=== PATIENT | male | born 1970 | race Hispanic/Latino ===

== ENCOUNTER → 2017-11-14 | Outpatient (CLI) | payer BC | END | disposition home or self-care (01) | LOC: RAH 16:44 | PROVIDERS: ATTEND Family Medicine | DX: M25.531 Pain in right wrist (principal) | CPT/HCPCS: 73110 ==

== ENCOUNTER 2025-02-19 06:55 | Day surgery (SDC) | payer BC ==
[2025-02-18 09:52] VITALS: BP 151/79; PULSE 81; RESP 19; TEMP 98.1
[2025-02-18 09:57] LABS: IMMATURE GRANULOCYTE ABSOLUTE 0.03 K/uL (0-1); NUCLEATED RED BLOOD CELLS 0.0 % (0.0-0.19); PLATELET COUNT (AUTO) 190 K/uL (130-400); RED BLOOD CELL COUNT(AUTO) 4.77 MIL/uL (4.50-6.20); RED CELL DISTRIBUTION WIDTH 14.0 % (11.0-15.5); WHITE BLOOD COUNT (AUTO) 5.5 K/uL (4.8-10.8)
[2025-02-18 10:07] LABS: INR 1.06 (0.85-1.15)
[2025-02-18 10:12] LABS: CREATININE 0.6 mg/dL (0.5-1.3); GLOMERULAR FILTR. RATE CALC 115.0 mL/min (>90); GLUCOSE,RANDOM 132.0 mg/dL (70-105); SODIUM SERUM 142.0 mmol/L (136-145); UREA NITROGEN, BLOOD 12.0 mg/dL (7-18)
[2025-02-18 10:15] LABS: APPEARANCE,URINE CLEAR (CLEAR); GLUCOSE, URINE (UA) NEGATIVE (NEGATIVE); LEUKOCYTE ESTERASE ,URINE NEGATIVE Leu/uL (NEGATIVE); NITRATE,URINE NEGATIVE (NEGATIVE); OCCULT BLOOD,URINE NEGATIVE (NEGATIVE)
[2025-02-18 10:22] LABS: ADD UA MICROSCOPIC NO
--- NOTE | 2025-02-18 12:24 | EKG ---
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
--- NOTE | 2025-02-18 16:14 | HMCIMG ---
EXAM: CR Chest, 1 View. CLINICAL HISTORY: PREOP COMPARISON: None provided. FINDINGS: LUNGS: There is no mass, infiltrate, or acute pulmonary abnormality. PLEURAL SPACES: No evidence of pleural effusion or pneumothorax. MEDIASTINUM: Cardiac size and mediastinal contours within normal limits. BONES: No acute osseous abnormality. IMPRESSION: No acute cardiopulmonary pathology is evident. /[place]
[~2025-02-19] VITALS: Ht 175.3 cm; Wt 1599.4 kg
[2025-02-19] VITALS (12 sets, daily range): BP systolic 115–135; BP diastolic 64–78; PULSE 68–84; RESP 13–24; TEMP 97.1–97.6
[~2025-02-19 06:55] MED LIST: ASPI-1443 PO; DAPA10TA PO; ERGO500093 PO; ICOS1CAP PO; LISI1TAB53 PO; METF-527 PO; ROSU10TA72 PO
[2025-02-19] MEDS: 0.9%NACL 1000ML 1,000 ML IV SCH (07:28)
[2025-02-19] MEDS ORDERED: CLOM50TA PO (07:33)
[2025-02-19] MEDS ORDERED: GLIM4TAB36 PO (07:33)
[2025-02-19] MEDS ORDERED: IODIXANOL 320 MG/ML 100 ML VIAL ONE (08:34)
[2025-02-19] MEDS ORDERED: LIDOCAINE HCL 400MG/20ML VIAL ONE (08:34)
[2025-02-19] MEDS ORDERED: NITROGLYCERIN 50MG VIAL ONE (08:34)
[2025-02-19] MEDS ORDERED: HEParin-NS 1,000 UNIT/500 ML 1,000 ML IV ONE (08:34)
[2025-02-19] MEDS ORDERED: SODIUM BICARB 50MEQ 50ML VIAL 50 ML ONE (08:41)
[2025-02-19] MEDS ORDERED: MIDAZOLAM HCL 1 MG/ML 2ML VIAL ONE (08:55)
[2025-02-19] MEDS ORDERED: ASPIRIN 325MG EC TAB PO ONE (10:28)
--- NOTE | 2025-02-19 10:45 | PRN ---
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 TECHNIQUE: Patient was brought to the lab in a fasting state after informed consent and sedated with 1 mg Versed and 50 mcg fentanyl additional Versed and fentanyl were administered as needed during the procedure; refer to computerized notes for details of conscious sedation and monitoring. Under local anesthesia with 1% lidocaine using ultrasound guidance with micropuncture technique the right jugular vein was accessed and a nine American sheath was inserted. A glide catheter was advanced with the Glidewire to the left common femoral vein and a venogram was obtained with a 8 mL injection. An exchange was made for an intravascular ultrasound catheter and I personally performed an intravascular ultrasound procedure, selected the segments for measurement, measured the segments and interpreted the results. We then administered 5000 units aqueous heparin and 600 mg clopidogrel and 325 mg aspirin and we deployed a Medtronic Abre venous self expanding stent system 18 x 120 mm diameter and length, spanning the proximal common femoral and the entire external iliac on the left side. Results were inspected by intravascular ultrasound and we repositioned in the right deep femoral vein, and performed intravascular ultrasound from the right common femoral vein to the IVC. I personally performed the procedure, selected the segments for measurement, performed the measurements and interpreted the results. We exchanged the intravascular ultrasound for a glide catheter and obtained a venogram. We then deployed a Medtronic Abre venous self expanding stent system 18 mm diameter x 150 mm in length, from the proximal common femoral to the distal common iliac. We then post dilated the distal external iliac with a 16 mm balloon inflated to five atmospheres. We then evaluated the results by intravascular ultrasound and removed the equipment, sitting the patient up and obtaining venous hemostasis by direct digital pressure. No complications occurred. The patient received less than 20 mL contrast and was transferred to the holding area in stable condition after successful procedure. Results: Venography: Left external iliac vein appeared to be compressed by about 50-60% angiographically. Right external iliac and distal common iliac appeared to be compressed by at least 60% angiographically. Intravascular Ultrasound: Inferior vena cava reference area 205 mm, diameter 16.5 mm. Left common iliac vein reference area 298 mm, diameter 18 mm. Left common iliac vein compression area 173 mm, diameter 16 mm, 42% compression. (This measurement was at the bifurcation of the vein from the IVC). Left external iliac vein reference area 188 mm, diameter 16 mm. Left external iliac vein compression area 82 mm, diameter 12 mm, 56% co mpression. Left external iliac vein post stent area 222 mm, diameter 17.5 mm. (This demonstrates that the entire external iliac vein including the reference area was compressed.) Left common femoral vein reference area 154 mm, diameter 14 mm. Left common femoral vein compression area 75 mm, diameter 10 mm, 51% compression. Left common femoral vein post stent area 207 mm, diameter 16 mm. (This demonstrates that the common femoral vein reference area was also stenotic, also compressed.) Right common iliac vein reference area 228 mm, diameter 18 mm. Right external iliac vein reference area 169 mm, diameter 16 mm. Right external iliac vein compression area 68 mm, diameter 10 mm, 59% compression. Right external iliac vein post stent area 182 mm, diameter 15.5 mm. (This measurement was obtained at the area that had been dilated, which was still a bit smaller than the rest of the stented vein, and this measurement again indicates that the entire right external iliac vein was compressed.) Right common femoral vein reference area 182 mm, diameter 16 mm. Right common femoral vein compression area 71 mm, diameter 10 mm, 61% compression. Right common femoral vein post stent area 209 mm, diameter 16 mm. 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 May-Thurner syndrome was successfully treated by venous stenting. Left common iliac vein was not stented because the apparent narrowing was at the origin of the vein, still had a very sizable cross-sectional vein area and diameter at the compressed site, and was thought probably not to be hemodynamically significant. Comment: We also measured right atrial pressure and it was elevated at 10 mm Hg. RENATE HANKS MD Feb 19, 2025 10:45
--- NOTE | 2025-02-19 12:50 | NUR ---
AMBULATORY/URINARY: ASSISTED TO STANDING POSITION WITHOUT COMPLAINING OF DIZZINESS. AMBULATED T O BATHROOM SLOW STEADY GAIT WITH ASSISTANCE. PT VOIDED QS URINE IN TOILET. ASSISTED BACK TO BED.
== END 2025-02-19 13:50 | disposition home or self-care (01) ==
LOC: DAH 06:55
PROVIDERS: ATTEND Internal Medicine Cardiovascular Disease
DX: I87.2 Venous insufficiency (chronic) (peripheral) (principal); I87.1 Compression of vein; I45.10 Unspecified right bundle-branch block; E11.9 Type 2 diabetes mellitus without complications; I10 Essential (primary) hypertension; G47.33 Obstructive sleep apnea (adult) (pediatric); E78.5 Hyperlipidemia, unspecified; Z99.89 Dependence on other enabling machines and devices; Z90.49 Acquired absence of other specified parts of digestive tract; Z88.0 Allergy status to penicillin; Z79.82 Long term (current) use of aspirin; Z79.01 Long term (current) use of anticoagulants; Z79.899 Other long term (current) drug therapy; Z79.84 Long term (current) use of oral hypoglycemic drugs
CPT/HCPCS: 80048; 83880; 85025; 85610; 85730; 81003; 36415; 71045; 93005; 37238; 37239; 36012; 37252; 37253 ×5; 82948 ×2; 99156; 99157 ×3; C1876 ×2; C1725; C1887; C1894 ×2; C1753; C1769; J3010 ×3; J3490 ×3; J7030; J1644 ×2; J2250; Q9967; A4215; A4222; A4221; A4663; A4216; A4606; A4223 ×3

== ENCOUNTER 2025-03-06 23:11 | Observation (INO) | payer BC ==
[~2025-03-06] VITALS: Ht 175.3 cm; Wt 158.9 kg
[~2025-03-06 23:11] MED LIST changes: +CLOM50TA PO; +GLIM4TAB36 PO; -ROSU10TA72 PO; +ROSU10TA98 PO
--- NOTE | 2025-03-06 23:17 | ERN ---
ED Note History of Present Illness Stated Complaint: CHEST PAIN/PRESSURE Chief Complaint: Chest Pain Time Seen by MD: 23:13 Dictation: PATIENT IS A 54-YEAR-OLD MALE COMING IN TODAY WITH HIS WITH COMPLAINTS OF HAVING SUBSTERNAL PAIN THAT RADIATES TO HIS LEFT SHOULDER ONSET APPROXIMATE HOUR PRIOR TO ARRIVAL. HE STATES HE WAS JUST SITTING WATCHING TV WHEN THE PAIN AND PRESSURE STARTED. NO NAUSEA VOMITING NO SOB. STATES HE HAS A HISTORY OF CAD, AND HAS HAD ILIAC STENTS IN THE PAST BY DR. HANKS. DENIES ANY CARDIAC STENTS NO BYPASSES. DOES STATE HE TOOK AN 81 MG ASPIRIN THIS MORNING WHICH HE TAKES DAILY. Allergies: Coded Allergies: Penicillins (Unverified Allergy, Unknown, 02/18/25) Home Meds Reported Medications Clomiphene Citrate (Clomid) 50 Mg Tablet, 50 MG PO 2xwek, TAB 02/19/25 Glimepiride (Glimepiride) 4 Mg Tablet, 1 TAB PO DAILY for 30 Days, #30 TAB 0 Refills 02/19/25 Ergocalciferol (Vitamin D2) (Vitamin D2) 1,250 Mcg (07567 Unit) Capsule, 1250 MCG PO 2X/WEEK, CAP 02/18/25 Aspirin (Aspirin EC) 81 Mg Tablet.dr, 81 MG PO DAILY, TAB 02/18/25 Icosapent Ethyl (Vascepa) 1 Gram Capsule, 2 GM PO BID, CAP 02/18/25 Rosuvastatin Calcium (Rosuvastatin Calcium) 10 Mg Tablet, 10 MG PO DAILY, TAB 02/18/25 Lisinopril/Hydrochlorothiazide (Lisinopril-Hctz 20-25 mg Tab) 20 Mg-25 Mg Tablet, 1 EACH PO DAILY, TAB 02/18/25 Metformin HCl (Metformin HCl ER) 1,000 Mg Tab.er.24, 1000 MG PO BID RESUME METFORMIN ON 02/20/25 02/18/25 Dapagliflozin Propanediol (Farxiga) 10 Mg Tablet, 10 MG PO DAILY, TAB 02/18/25 Past Medical History RN Note Reviewed/Agreed w/PFSH: Yes Review of System Dictation CONSTITUTIONAL: NEGATIVE EXCEPT FOR HPI HEAD/FACE: NEGATIVE EXCEPT FOR HPI EENT: NEGATIVE EXCEPT FOR HPI RESPIRATORY: NEGATIVE EXCEPT FOR HPI SUBSTERNAL CHEST PAIN THAT RADIATES TO LEFT SHOULDER GASTROINTESTINAL/ABDOMINAL: NEGATIVE EXCEPT FOR HPI GENITOURINARY: NEGATIVE EXCEPT FOR HPI MUSCULOSKELETAL: NEGATIVE EXCEPT FOR HPI INTEGUMENTARY: NEGATIVE EXCEPT FOR HPI NEUROLOGICAL/PSYCH: NEGATIVE EXCEPT FOR HPI HEMATOLOGIC/LYMPHATIC: NEGATIVE EXCEPT FOR HPI ALL SYSTEMS NEGATIVE, EXCEPT NOTED ABOVE. 13 POINT REVIEW OF SYSTEMS ASSESSED AND ALL NEGATIVE EXCEPT FOR ABOVE. Initial Vital Sign VS Vital Signs Date Time Temp Pulse Resp B/P (MAP) Pulse Ox O2 Delivery O2 Flow Rate FiO2 03/06/25 23:12 99.1 103 20 156/79 97 Room Air 0 03/06/25 23:24 21 Physical Exam Dictation VITAL SIGNS REVIEWED GENERAL APPEARANCE: ALERT, ORIENTED X 3, MODERATE ACUTE DISTRESS, WELL DEVELOPED, NOURISHED. MORBID OBESITY HEAD AND FACE: NON-TRAUMATIC. EYES: PERRL, PINK CONJUNCTIVAS, EYELID NO TRAUMA, ANTERIOR CHAMBER WITH ARCUS SENILIS. EARS: PINNAS INTACT AND NO SIGNS OF TRAUMA OR ERYTHEMA EAR CANALS CLEAR AND NO DISCHARGE TM NO ERYTHEMA NOSE: NO DISCHARGE, NO BLEEDING. OROPHARYNX: MOUTH NORMAL, TONGUE PINK, PHARYNX CLEAR,NO ERYTHEMA, TONSILS NO EXUDATES, NO ABSCESSES NOTED, MUCOUS MEMBRANE MOIST NECK: SUPPLE, NON-TENDER, NO THYROMEGALY, NO MASSES, NO JVD, NO BRUITS BREAST:DEFERRED CHEST:NO TENDERNESS, NO CREPITUS, NO PARADOXICAL MOVEMENT, NO RETRACTIONS LUNGS:CLEAR, WELL-VENTILATED, SYMMETRIC, NO RALES, NO WHEEZING, NO RHONCHI, NO STRIDOR, GOOD BREATH SOUNDS BILATERALLY HEART: REGULAR RATE, REGULAR RHYTHM, NO MURMUR, NO GALLOPS VASCULAR: NO PERIPHERAL EDEMA, ABDOMEN: SOFT, POSITIVE BOWEL SOUNDS, NONDISTENDED, NO GUARDING, NONTENDER, NO REBOUND, NO MASSES NO HEPATOMEGALY, NO SPLENOMEGALY, NO FRY'S SIGN, NO HERNIAS. RECTAL: DEFERRED GENITAL: DEFERRED NEUROLOGICAL: NORMAL SPEECH, MOTOR FUNCTION INTACT, SENSORY FUNCTION INTACT MUSCULOSKELETAL: NECK NONTENDER, FULL RANGE OF MOTION, BACK NONTENDER, FULL RANGE OF MOTION, EXTREMITIES: NONTENDER, FULL RANGE OF MOTION SKIN: COLOR PINK, DRY, NO TURGOR, NO RASH, NO LACERATIONS, NO ABRASIONS, NO CONTUSIONS. LYMPHATIC: DEFERRED Results (Laboratory/Radiology) Laboratory/Radiology Laboratory Tests Test 03/06/25 23:30 White Blood Count 7.7 K/uL (4.8-10.8) Red Blood Count 4.77 MIL/uL (4.50-6.20) Hemoglobin 14.7 g/dL (14.0-18.0) Hematocrit 44.7 % (42-54) Mean Corpuscular Volume 93.7 fL (79-99) Mean Corpuscular Hemoglobin 30.8 pg (27.0-33.0) Mean Corpuscular Hemoglobin Concent 32.9 g/dL (32.0-36.0) Red Cell Distribution Width 13.4 % (11.0-15.5) Platelet Count 237 K/uL (130-400) Mean Platelet Volume 10.4 fL (7.5-10.5) Immature Granulocyte % (Auto) 0.5 % (0-1) Neutrophils (%) (Auto) 64.4 % (40.0-77.0) Lymphocytes (%) (Auto) 22.6 % (21.0-51.0) Monocytes (%) (Auto) 9.7 % (3.0-13.0) Eosinophils (%) (Auto) 2.5 % (0.0-8.0) Basophils (%) (Auto) 0.3 % (0.0-5.0) Neutrophils # (Auto) 5.0 K/uL (1.8-7.7) Lymphocytes # (Auto) 1.7 K/uL (1.0-4.8) Monocytes # (Auto) 0.8 K/uL (0.1-1.0) Eosinophils # (Auto) 0.19 K/uL (0.00-0.70) Basophils # (Auto) 0.02 K/uL (0.00-0.20) Absolute Immature Granulocyte (auto 0.04 K/uL (0-1) Nucleated Red Blood Cells 0.0 % (0.0-0.19) Urine Color COLORLESS (YELLOW) Urine Appearance CLEAR (CLEAR) Urine pH 5.5 (5.0-8.0) Urine Specific [place] 1.012 (1.001-1.031) Urine Protein NEGATIVE mg/dL (NEGATIVE) Urine Glucose (UA) >=1000 mg/dL (NEGATIVE) H Urine Ketones NEGATIVE mg/dL (NEGATIVE) Urine Occult Blood NEGATIVE (NEGATIVE) Urine Nitrate NEGATIVE (NEGATIVE) Urine Bilirubin NEGATIVE mg/dL (NEGATIVE) Urine Urobilinogen 0.2 mg/dL (0.2-1.0) Urine Leukocyte Esterase NEGATIVE [place]/uL Urine RBC 0-1 /HPF (0-1) Urine WBC 0-1 /HPF (0-1) Urine Bacteria None /HPF (None Seen) Sodium Level 144 mmol/L (136-145) Potassium Level 3.6 mmol/L (3.5-5.1) Chloride Level 103 mmol/L (101-111) Carbon Dioxide Level 27 mmol/L (21-32) Blood Urea Nitrogen 13 mg/dL (7-18) Creatinine 0.9 mg/dL (0.5-1.3) Glomerular Filtration Rate Calc 101 mL/min (>90) Random Glucose 125 mg/dL (70-105) H Total Calcium 8.3 mg/dL (8.5-10.1) L Magnesium Level 2.00 mg/dL (1.80-2.40) Troponin I High Sensitivity 7 ng/L (4-75) 0012/chest x-ray negative Labs Reviewed?: Yes EKG Comment: 2319/EKG sinus tachycardia/heart rate 104/right bundle branch block intraventricular conduction delay in anterolateral leads No acute change from EKG dated 02/18/2025 ED Course ED Course Orders Procedure Category Date Status Time Cbc With Differential LAB 03/06/25 Complete 23:15 Chest 1vw RAD 03/06/25 Resulted 23:15 12 Lead Ekg Tracing- EKG 03/06/25 Complete Technical 23:15 Magnesium LAB 03/06/25 Complete 23:15 Troponin I High LAB 03/06/25 Complete Sensitivity 23:15 Aspirin 325mg Tab PHA 03/06/25 Complete (Aspirin 325mg Tab) 23:30 Basic Metabolic Panel LAB 03/06/25 Complete 23:15 Oxygen By Nc/Pulse Ox CPOE 03/06/25 Transmitted 23:15 Nitroglycerin 0.4mg PHA 03/06/25 In Process Sl Tab (Nitrostat) 23:30 Urinalysis Profile LAB 03/06/25 Complete 23:51 Nitroglycerin PHA 03/07/25 Complete 50mg/D5w 250ml 00:33 Heparin 25,000 PHA 03/07/25 Logged Units/250ml D5w 01:00 Current Medications Medications (Trade) Dose Ordered Sig/Caitlin Route PRN Reason Start Time Stop Time Status Last Admin Dose Admin Aspirin (Aspirin 325mg Tab) 325 mg ONCE ONCE PO 03/06/25 23:30 03/06/25 23:31 DC 03/06/25 23:38 Nitroglycerin (Nitrostat) 0.4 mg AD PRN SL CHEST PAIN 03/06/25 23:30 04/05/25 23:29 03/06/25 23:38 Nitroglycerin/ Dextrose 250 ml @ 0 mls/hr PROTOCOL STAT IV 03/07/25 00:33 03/07/25 00:37 DC Vital Signs Date Time Temp Pulse Resp B/P (MAP) Pulse Ox O2 Delivery O2 Flow Rate FiO2 03/06/25 23:24 98.8 85 18 135/66 99 Room Air* 0 21 03/06/25 23:12 99.1 103 20 156/79 97 Room Air 0 0032/PATIENT STATES HE IS STILL FEELING SOME PRESSURE BETWEEN HIS SHOULDER BLADES. HE SAID THE PAIN TO HIS CHEST WAS RESOLVED WITH NITRO SUBLINGUAL. HE IS AWARE THAT HE HAS A AN ABNORMAL EKG WITH NORMAL TROPONIN. HE WILL BE INITIATED WITH A NITROGLYCERIN DRIP AND ADMITTED TO THE HOSPITAL FOR ACUTE COR ONARY SYNDROME 0045/SPOKE WITH VIRAJ LLAMASP HOSPITALIST REVIEWED EKG LABS AND INTERVENTIONS FOR ACUTE CORONARY SYNDROME TO INCLUDE HEPARIN AND NITROGLYCERIN. SHE AGREED TO ADMIT PATIENT. Medical Decision Making MDM MDM: DIFFERENTIAL DIAGNOSIS: ACS/AMI/ACUTE CORONARY SYNDROME/ELECTROLYTE IMBALANCE/DEHYDRATION/PNEUMONIA/BRONCHITIS RATIONALE: TESTS CONSIDERED AND ORDERED SECONDARY TO SHARED DECISION MAKING INCLUDE: LABS, ECG AND RADIOLOGY PREVIOUS OUTSIDE RECORDS REVIEWED: OLD ER VISITS. RISK OF COMPLICATION AND/OR MORBIDITY OR MORTALITY OF PATIENT MANAGEMENT: NONE MEDICATIONS-PER MEDICATION RECONCILIATION NEED FOR HOSPITALIZATION: PATIENT DOES MEET CRITERIA FOR HOSPITALIZATION. PATIENT WILL NEED TO BE ADMITTED FOR ACUTE CORONARY SYNDROME, SERIAL EKG AND ENZYMES AND CARDIAC CONSULTATION NEED FOR EMERGENCY MAJOR/MINOR SURGERY: NO THERE ARE NO SOCIAL CONCERNS WITH THIS PATIENT. PRESCRIPTION DRUG MANAGEMENT PRESCRIPTIONS WILL INCLUDE SYMPTOMATIC CARE PATIENT'S PRIOR EXTERNAL MEDICAL RECORDS FROM OTHER ER VISITS WERE REVIEWED BY ME INDICATED. PRIOR TESTING AND RESULTS FROM PREVIOUS VISITS WERE REVIEWED. PRIOR TESTS WERE TAKEN INTO ACCOUNT WITH MEDICAL DECISION MAKING AND RESOURCE UTILIZATION, INDEPENDENT HISTORIAN/HISTORIANS WERE USED TO OBTAIN COMPLETE MEDICAL HISTORY. I INDEPENDENTLY INTERPRETED THE TEST THAT WERE PERFORMED, RESULTS WERE REVIEWED BY ME AND CONSIDERED FINDINGS ON RADIOLOGY IF ORDERED. MEDICAL MANAGEMENT AND EXAMINATION INTERPRETATION DISCUSSIONS WERE HAD BY ME WITH OTHER QUALIFIED HEALTHCARE PROFESSIONALS INDICATED FOR THE PATIENT'S CARE. DX & DISP Disposition: Inpatient Decision to Admit Time: 00:36 Departure Impression: Primary Impression: Acute coronary syndrome without high troponin Additional Impressions: Hypocalcemia, Uncontrolled diabetes mellitus, Obesity, Abnormal EKG Condition: Stable Referrals: MIRIAM RICHARDSON (PCP) Time of Disposition: 00:36 I have reviewed the case, and I agree with, Diagnosis and Plan PATY JOHNS Mar 06, 2025 23:17
--- NOTE | 2025-03-06 23:25 | EKG ---
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
[2025-03-06] MEDS: NITROGLYCERIN 0.4 MG SL TAB SL PRN (23:38)
[2025-03-06] MEDS: ASPIRIN 325MG TAB PO ONE (23:38)
[2025-03-06 23:55] LABS: IMMATURE GRANULOCYTE ABSOLUTE 0.04 K/uL (0-1); NUCLEATED RED BLOOD CELLS 0.0 % (0.0-0.19); PLATELET COUNT (AUTO) 237 K/uL (130-400); RED BLOOD CELL COUNT(AUTO) 4.77 MIL/uL (4.50-6.20); RED CELL DISTRIBUTION WIDTH 13.4 % (11.0-15.5); WHITE BLOOD COUNT (AUTO) 7.7 K/uL (4.8-10.8)
[2025-03-07 00:01] LABS: ADD UA MICROSCOPIC YES; APPEARANCE,URINE CLEAR (CLEAR); GLUCOSE, URINE (UA) >=1000 mg/dL (NEGATIVE); LEUKOCYTE ESTERASE ,URINE NEGATIVE Leu/uL (NEGATIVE); NITRATE,URINE NEGATIVE (NEGATIVE); OCCULT BLOOD,URINE NEGATIVE (NEGATIVE)
[2025-03-07 00:15] LABS: CREATININE 0.9 mg/dL (0.5-1.3); GLOMERULAR FILTR. RATE CALC 101.0 mL/min (>90); GLUCOSE,RANDOM 125.0 mg/dL (70-105); SODIUM SERUM 144.0 mmol/L (136-145); UREA NITROGEN, BLOOD 13.0 mg/dL (7-18)
--- NOTE | 2025-03-07 00:32 | HMCIMG ---
EXAM: CR Chest, 1 View. CLINICAL HISTORY: Chest pain. COMPARISON: 05/30/24. FINDINGS: LUNGS: The lungs show no infiltrate or other acute finding. PLEURAL SPACES: No pleural effusion or pneumothorax. MEDIASTINUM: Cardiac size and mediastinal contours are within normal limits. BONES: No aggressively appearing osseous lesion. IMPRESSION: No acute cardiopulmonary pathology is evident. No interval change. /[place]
[2025-03-07] MEDS: NITROGLYCERIN 50MG/D5W 250ML 250 BOT IV STA (00:57)
[2025-03-07 01:26] LABS: INR 1.06 (0.85-1.15)
--- NOTE | 2025-03-07 03:08 | HP ---
[facility] PH[facility] Date of Service: Mar 07, 2025 Time of Service: 03:08 PCP: Fortunato Kimble HISTORY OF PRESENT ILLNESS: This is a 54-year-old male with past medical history of diabetes, hypertension, hyperlipidemia, obstructive sleep apnea on CPAP at home and peripheral arterial disease with stent who presents to the ED for complaints of left side chest pain that radiates to his left shoulder .Patient reports he was eating chipewwa and pickles and initially thought he has hyperacidity so he took some of Sodium Bicarbonate and Pepto bismol but afforded no relief and chest pain also radiates to his back so he deicded to come to the ED for evaluation.Tonight while sitting down,patient continues to have chest pain.Patient states 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 Patient reports he had bilateral iliofemoral venogram with bilateral external iliac vein stent done performed by Dr. Win on February 19/2025 .Seen and examined patient in the ER awake alert and coherent on nitroglycerin drip pending heparin drip initiated per ER. Patient denies fever,cough,nausea,vomiting,abdominal pain,palpitation and shortness of breath. Latest vital signs temperature 98.4, heart rate 82, blood pressure 107/57 saturation 98% on room air. Labs: CBC normal. Random glucose 125, total calcium 8.3 seven. Urinalysis significant for urine glucose more than 1000 the rest is unremarkable. Chest x-ray result revealed no acute cardiopulmonary pathology no interval change. ECG result revealed sinus tachycardia heart rate 104 with right bundle branch block ST elevation secondary to IVCD. While in the ER patient received aspirin 325 mg p.o., Nitrostat 0.4 sublingual, started on heparin drip, potassium 25 mEq and patient was on nitroglycerin drip. We will admit patient to ICU for further medical management. REVIEW OF SYSTEMS CONSTITUTIONAL: Denies fevers, chills, or night sweats. No unintentional weight loss reported. NEUROLOGICAL: Denies headache, amaurosis fugax, motor weakness, sensory deficit, vertigo/spinning sensation, gait abnormalities, or tremors. ENT: No hearing loss, otalgia, otorrhea, rhinitis, rhinorrhea, hoarseness, or sore throat. CARDIOVASCULAR: Left-sided chest pain which radiates to the left shoulder and back Denies any exertional angina, dyspnea on exertion, orthopnea, paroxysmal nocturnal dyspnea, palpitations, life-threatening arrhythmias, claudication. PULMONARY: Denies any shortness of breath, cough, phlegm/sputum, hemoptysis, pleuritic chest pain. SLEEP: Denies morning headaches, daytime somnolence or napping. Denies difficulty falling asleep, staying asleep, waking from sleep. Denies knowledge of snoring. GASTROINTESTINAL: Denies any type of dysphagia to either liquids or solids. Denies nausea, vomiting, pyrosis, early satiety, abdominal pain, diarrhea, constipation, or changes in stool consistency or caliber. Denies coffee-ground emesis, hematemesis, hematochezia, or melanotic stools. GENITOURINARY: Denies frequency, urgency, nocturia, hematuria or incontinence (Storage/Irritative symptoms.) Low urinary stream, straining to void, urinary intermittency or hesitancy, splitting of the voiding stream, terminal dribbling. ENDOCRINOLOGIC: Denies polyuria, polydipsia, polyphagia or heat/cold intolerances. HEMATOLOGIC: Denies thrombophilia/previous clots, or coagulopathy/bleeding disorders. ONCOLOGIC: Denies personal history of malignancy. DERMATOLOGIC: Denies rashes or pruritus. PSYCHIATRIC: Denies any suicidal or homicidal ideation. Denies hallucinations. PAST MEDICAL HISTORY: [ ] PAST SURGICAL HISTORY: [ ] PAST SOCIAL HISTORY: [ ] FAMILY HISTORY: [ ] Coded Allergies: Penicillins (Unverified Allergy, Unknown, 02/18/25) PHYSICAL EXAM GENERAL APPEARANCE: The patient is awake, alert, and oriented, in no acute cardiopulmonary distress. NEUROLOGICAL: Cranial nerves II-XII grossly intact. Motor is 5/5 in bilateral upper and lower extremities proximal to distal. No sensory deficits. HEENT: Face is symmetric. Pupils are equal and reactive. Extraocular movements are intact. NECK: Supple. No JVD. No thyromegaly. No submental, submandibular, pre- /postauricular, occipital or supraclavicular lymphadenopathy. CHEST: Normal chest expansion. No Telemetry. LUNGS: Absence of any rales, rhonchi or any wheezing. CARDIOVASCULAR: Regular. S1 and S2 normal. No appreciable rubs, murmurs or gallops. ABDOMEN: Soft, nontender, and nondistended. There is no rebound, voluntary guarding, or rigidity. : Deferred. No Wyatt. EXTREMITIES: Non-edematous and not cyanotic. No clubbing. Good capillary refill. SKIN: No skin breakdown. Vital Sign (Last 24 Hours) 03/06/25 23:24 Temp 98.8 Pulse 85 Resp 18 B/P (MAP) 135/66 Pulse Ox 99 O2 Delivery Room Air* O2 Flow Rate 0 FiO2 21 LABS: Laboratory: Test 03/06/25 23:30 Range/Units White Blood Count 7.7 4.8-10.8 K/uL Red Blood Count 4.77 4.50-6.20 MIL/uL Hemoglobin 14.7 14.0-18.0 g/dL Hematocrit 44.7 42-54 % Mean Corpuscular Volume 93.7 79-99 fL Mean Corpuscular Hemoglobin 30.8 27.0-33.0 pg Mean Corpuscular Hemoglobin Concent 32.9 32.0-36.0 g/dL Red Cell Distribution Width 13.4 11.0-15.5 % Platelet Count 237 130-400 K/uL Mean Platelet Volume 10.4 7.5-10.5 fL Immature Granulocyte % (Auto) 0.5 0-1 % Neutrophils (%) (Auto) 64.4 40.0-77.0 % Lymphocytes (%) (Auto) 22.6 21.0-51.0 % Monocytes (%) (Auto) 9.7 3.0-13.0 % Eosinophils (%) (Auto) 2.5 0.0-8.0 % Basophils (%) (Auto) 0.3 0.0-5.0 % Neutrophils # (Auto) 5.0 1.8-7.7 K/uL Lymphocytes # (Auto) 1.7 1.0-4.8 K/uL Monocytes # (Auto) 0.8 0.1-1.0 K/uL Eosinophils # (Auto) 0.19 0.00-0.70 K/uL Basophils # (Auto) 0.02 0.00-0.20 K/uL Absolute Immature Granulocyte (auto 0.04 0-1 K/uL Nucleated Red Blood Cells 0.0 0.0-0.19 % Prothrombin Time 11.2 9.6-11.6 SEC Prothromb Time International Ratio 1.06 0.85-1.15 Activated Partial Thromboplast Time 25.9 L 26.3-35.5 SEC Urine Color COLORLESS YELLOW Urine Appearance CLEAR CLEAR Urine pH 5.5 5.0-8.0 Urine Specific [place] 1.012 1.001-1.031 Urine Protein NEGATIVE NEGATIVE mg/dL Urine Glucose (UA) >=1000 H NEGATIVE mg/dL Urine Ketones NEGATIVE NEGATIVE mg/dL Urine Occult Blood NEGATIVE NEGATIVE Urine Nitrate NEGATIVE NEGATIVE Urine Bilirubin NEGATIVE NEGATIVE mg/dL Urine Urobilinogen 0.2 0.2-1.0 mg/dL Urine Leukocyte Esterase NEGATIVE NEGATIVE [place]/uL Urine RBC 0-1 0-1 /HPF Urine WBC 0-1 0-1 /HPF Urine Bacteria None None Seen /HPF Sodium Level 144 136-145 mmol/L Potassium Level 3.6 3.5-5.1 mmol/L Chloride Level 103 101-111 mmol/L Carbon Dioxide Level 27 21-32 mmol/L Blood Urea Nitrogen 13 7-18 mg/dL Creatinine 0.9 0.5-1.3 mg/dL Glomerular Filtration Rate Calc 101 >90 mL/min Random Glucose 125 H 70-105 mg/dL Total Calcium 8.3 L 8.5-10.1 mg/dL Magnesium Level 2.00 1.80-2.40 mg/dL Troponin I High Sensitivity 7 4-75 ng/L Current Medications Medications (Trade) Dose Ordered Sig/Caitlin Route PRN Reason Start Time Stop Time Status Last Admin Dose Admin Heparin Sodium (Porcine) (HEParin 5,000 UNIT VIAL) *calculation based on ACTUAL B... AD PRN IV HEPARIN PROTOCOL 03/07/25 03:00 04/06/25 02:59 03/07/25 02:12 17 UNIT Heparin Sodium/ Dextrose 250 ml @ 0 mls/hr PROTOCOL IV 03/07/25 01:00 03/07/25 01:59 DC Heparin Sodium/ Dextrose 250 ml @ 0 mls/hr Q6H IV 03/07/25 03:00 04/06/25 02:59 Nitroglycerin (Nitrostat) 0.4 mg AD PRN SL CHEST PAIN 03/06/25 23:30 04/05/25 23:29 03/06/25 23:38 0.4 MG Nitroglycerin/ Dextrose 250 ml @ 0 mls/hr PROTOCOL STAT IV 03/07/25 00:33 03/07/25 00:37 DC 03/07/25 00:57 1.5 MLS/HR DIAGNOSTICS / RADIOLOGY: [ ] ASSESSMENT: Chest pain rule out ACS POA Hypertension POA Hyperlipidemia POA Diabetes POA Peripheral arterial disease with bilateral iliac stent POA Morbid obesity POA PLAN: We will admit patient in ICU We will start on heart healthy diet Continue on heparin nitroglycerin drip started in ER 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 daily home dose atorvastatin 20 mg p.o. HS We will continue famotidine 20 mg p.o. daily for GI prophylaxis We will replace electrolytes as needed per protocol We will start on insulin sliding scale AC & HS with hypoglycemia protocol We will add prn medication for fever,pain,cough , nausea and vomiting We will reconcile home meds once medlist available We will trend troponin q.6 We will obtain echocardiogram We will seek critical care consultation We will seek Cardiology consultation We will request labs in am Further orders to follow depending on above results Case discussed with attending physician and came up with above treatment and plan of care. ADVANCED CARE PLANNING 1. Which of the following were discussed? Hospice Care - No Therapeutic options - Yes Advance Directives - No Other discussions - 2. Discussed with who? Patient 3. Voluntary nature of this service was explained to the patient? Yes 4. Amount of time spent - _26 min 5. Reviewed by Physician? (if this service was performed by NPP) Yes Patient seen and examined by me. Agree with note by PATTERN AND CHAIN MAKER SEE ADDITIONAL ORDERS PER CHART DISCUSSED WITH NURSING STAFF DORA BRAVO Mar 07, 2025 03:08 GODFREY GONSALEZ MD Mar 09, 2025 12:36
[2025-03-07] MEDS ORDERED: GLUCAGON 1MG KIT 1 MG ML IM PRN (03:30)
[2025-03-07] MEDS ORDERED: PoTASSium chl 10% ELIXIR 20MEQ 20 MEQ/15 ML UDCUP PO PRN (03:30)
[2025-03-07] MEDS ORDERED: DEXTROSE 50%-WATER 50 ML DISP.SYRIN IV PRN (03:30)
[2025-03-07] MEDS ORDERED: MAGNESIUM 2GM PREMIX 50ML 50 ML IV PRN (03:30)
[2025-03-07 05:50] LABS: IMMATURE GRANULOCYTE ABSOLUTE 0.03 K/uL (0-1); NUCLEATED RED BLOOD CELLS 0.0 % (0.0-0.19); PLATELET COUNT (AUTO) 220 K/uL (130-400); RED BLOOD CELL COUNT(AUTO) 4.49 MIL/uL (4.50-6.20); RED CELL DISTRIBUTION WIDTH 13.5 % (11.0-15.5); WHITE BLOOD COUNT (AUTO) 6.9 K/uL (4.8-10.8)
--- NOTE | 2025-03-07 06:00 | EKG ---
[facility] Test Date: 2025-03-07 Test Time: 05:55:58 Pat Name: LOIDA SHETH Department: [facility] Room: 314 Gender: M Patrol Mother: [id number] : 1970 Requested By: DORA BRAVO Order Number: [id number] Reading MD: Mejia Alvarado Measurements Intervals [place] Rate: 71 P: 27 MN: 122 QRS: -23 QRSD: 148 T: 19 QT: 433 QTc: 472 Interpretive Statements Sinus rhythm Right bundle branch block Compared to ECG 03/06/2025 23:19:09 Sinus tachycardia no longer present Intraventricular conduction delay no longer present ST (T wave) deviation no longer present Electronically Signed On 03-07-2025 17:46:13 CDT by Meija Alvarado Please click the below link to view image of tracing.
[2025-03-07 06:07] LABS: ERYTHROCYTE SEDIMENTATION RATE 16 MM/HR (0-20)
[2025-03-07 07:00] LABS: ASPARTATE AMINOTRANSFERASE 25.0 U/L (10-37); CREATINE KINASE, TOTAL 195.0 U/L (21-232); CREATININE 0.8 mg/dL (0.5-1.3); GLOMERULAR FILTR. RATE CALC 105.0 mL/min (>90); GLUCOSE,RANDOM 100.0 mg/dL (70-105); SODIUM SERUM 140.0 mmol/L (136-145); TOTAL PROTEIN, SERUM 6.6 g/dL (6.0-8.3); UREA NITROGEN, BLOOD 12.0 mg/dL (7-18)
--- NOTE | 2025-03-07 08:28 | NUR ---
ATTEMPTED TO CALL FOR REPORT; PENDING CALL BACK.
[2025-03-07] MEDS: FAMOTIDINE 20MG TAB PO SCH (08:54)
[2025-03-07] MEDS: LISINOPRIL 20 MG TABLET PO SCH (08:54)
[2025-03-07] MEDS: ASPIRIN 81 MG EC TAB PO SCH (08:54)
[2025-03-07] MEDS ORDERED: NON-FORMULARY MEDICATION 1 EACH (Lisinopril/Hydrochlorothiazide (Lisinopril-Hctz 20-25 mg PO SCH (09:00)
[2025-03-07 09:30] VITALS: PULSE 79; RESP 23; TEMP 98.3
--- NOTE | 2025-03-07 09:30 | NUR ---
patient arrival from ER via stretcher. Nitro drip at 5 mcg and Heparin drip infusing. Dr. Alvarado in unit, notified of new cardio consult to r/o ACS. MD assessed patient at bedside. New orders received per MD, discontinue nitro drip, discontinue heparin drip, and may downgrade out of ICU, increase atorvastatin to 40mg, start metoprolol 25mg po BID, and order lexiscan. Patient aware of plan of care. All questions answered. Orders followed through. Patient also seen by Rene CHONG with critical care team. no new orders received.
[2025-03-07 10:00] VITALS: PULSE 80; RESP 22
--- NOTE | 2025-03-07 10:20 | CONS ---
[facility] CARDIOLOGY CONSULTATION NOTE Date Patient Seen: Mar 07, 2025 Time of Visit: 09:56 Reason for Consultation: [ ] History of Present Illness: [54 year old male patient that follows in cardiology clinic with Dr Win , past medical history of morbid obesity , hypertension , hyperlipidemia , type 2 DM , HUANG on CPAP ,venous insufficiency s/p bilateral stenting , Coronary Angiogram (approximately 2017) with Dr. Negron: Reports it was normal, who presents to the ED for complaints of left side anterior epigastric pain radiating to his chest onset at rest that radiates to his left shoulder radiates to his back , the patient took antacids due to the concern that his symptoms could be GI related with no relief , the patient presented to the ED , endorsing ongoing chest pain , the patient was placed on IV Nitroglycerin infusion , and his symptoms resolved , presenting ECG revealed sinus tachycardia heart rate 104 with right bundle branch block with no acute ischemia , repeat ECG sinus rhythm with RBBB with no ischemia , Chest x-ray result revealed no acute cardiopulmonary pathology, troponin has been negative x 2 , on evaluation at the bedside the patient denies any further chest pain , palpitations, dyspnea or any other anginal equivalents, he denies any history of DE/CAD/stroke. Cardiology was consulted for ACS rule out ] Past Medical History: [refer to chart ] Past Surgical History: [refer to HPI ] Family History: [refer to HPI ] Social History: [refer to HPI ] Habits: [Never] smoker. [Denies] alcohol consumption. [Denies] illicit drug use Review of Systems: A review of 12 point systems was negative set per HPI Physical Examination: GENERAL: [No acute distress.] HEAD: [Normal with no signs of head trauma.] EYES: [PERRLA, EOMI, conjunctiva and sclera normal.] ENT: [Hearing grossly intact, normal oropharynx.] NECK: [Supple without JVD. There is no tenderness, lymphadenopathy, or masses. No thyromegaly. Normal carotid upstrokes without bruits.] LUNGS: [Clear breath sounds bilaterally. No wheezes, or rhonchi.] HEART: [Normal rate and rhythm. Normal S1 and S2 without murmurs, gallop or rub.] VASC: [Peripheral pulses +2 bilaterally.] ABD: [Bowel sounds normal, soft, nontender, no masses, no organomegaly. No brian ble bruits.] : [Not examined] LYMPH: [No lymphadenopathy noted.] EXT: [No clubbing, cyanosis or edema.] SKIN: [No rashes or lesions noted.] NEURO: [Awake, alert, and oriented x3. No focal sensory or strength deficits noted.] Vital Signs (last 8hr) Date Time Temp Pulse Resp B/P (MAP) Pulse Ox O2 Delivery O2 Flow Rate FiO2 03/07/25 09:05 98.1 78 20 145/52 99 Room Air* 0 21 03/07/25 07:38 69 20 110/58 95 Room Air* 0 21 03/07/25 07:30 98.2 68 20 110/58 95 Room Air* 0 21 03/07/25 05:34 98.4 82 20 107/57 98 Room Air* 0 21 03/07/25 03:32 98.4 80 20 125/62 98 Room Air* 0 21 Laboratory: [ ] Hematology Labs: Test 03/07/25 05:34 Range/Units White Blood Count 6.9 4.8-10.8 K/uL Red Blood Count 4.49 L 4.50-6.20 MIL/uL Hemoglobin 14.1 14.0-18.0 g/dL Hematocrit 41.8 L 42-54 % Mean Corpuscular Volume 93.1 79-99 fL Mean Corpuscular Hemoglobin 31.4 27.0-33.0 pg Mean Corpuscular Hemoglobin Concent 33.7 32.0-36.0 g/dL Red Cell Distribution Width 13.5 11.0-15.5 % Platelet Count 220 130-400 K/uL Mean Platelet Volume 10.3 7.5-10.5 fL Immature Granulocyte % (Auto) 0.4 0-1 % Neutrophils (%) (Auto) 51.4 40.0-77.0 % Lymphocytes (%) (Auto) 35.9 21.0-51.0 % Monocytes (%) (Auto) 8.2 3.0-13.0 % Eosinophils (%) (Auto) 3.8 0.0-8.0 % Basophils (%) (Auto) 0.3 0.0-5.0 % Neutrophils # (Auto) 3.6 1.8-7.7 K/uL Lymphocytes # (Auto) 2.5 1.0-4.8 K/uL Monocytes # (Auto) 0.6 0.1-1.0 K/uL Eosinophils # (Auto) 0.26 0.00-0.70 K/uL Basophils # (Auto) 0.02 0.00-0.20 K/uL Absolute Immature Granulocyte (auto 0.03 0-1 K/uL Nucleated Red Blood Cells 0.0 0.0-0.19 % Erythrocyte Sedimentation Rate 16 0-20 MM/HR Chemistry Labs: Test 03/07/25 08:41 03/07/25 05:34 Range/Units Whole Blood Glucose 151 H 70-110 MG/DL Sodium Level 140 136-145 mmol/L Potassium Level 3.6 3.5-5.1 mmol/L Chloride Level 105 101-111 mmol/L Carbon Dioxide Level 27 21-32 mmol/L Blood Urea Nitrogen 12 7-18 mg/dL Creatinine 0.8 0.5-1.3 mg/dL Glomerular Filtration Rate Calc 105 >90 mL/min Random Glucose 100 70-105 mg/dL Total Calcium 8.1 L 8.5-10.1 mg/dL Magnesium Level 2.00 1.80-2.40 mg/dL Total Bilirubin 0.4 0.2-1.0 mg/dL Aspartate Amino Transf (AST/SGOT) 25 10-37 U/L Alanine Aminotransferase (ALT/SGPT) 36 12-78 U/L Alkaline Phosphatase 50 50-136 U/L Total Creatine Kinase 195 21-232 U/L Troponin I High Sensitivity 7 4-75 ng/L Total Protein 6.6 6.0-8.3 g/dL Albumin 3.1 L 3.5-5.0 g/dL Thyroid Stimulating Hormone (TSH) 4.40 H 0.36-3.74 uIU/mL Coagulation Labs: Test 03/07/25 07:46 03/06/25 23:30 Range/Units Activated Partial Thromboplast Time 86.3 #H 26.3-35.5 SEC Prothrombin Time 11.2 9.6-11.6 SEC Prothromb Time International Ratio 1.06 0.85-1.15 Diagnostics / Radiology: [Copy/Paste Echos/Imaging Report here] Assessment: Chest pain Hypertension Hyperlipidemia Diabetes Morbid obesity POA Venous insufficiency s/p bilateral stenting HAUNG on CPAP Plan: [#Chest pain ACS rule out Endorsing anterior epigastric chest pain that extends to his chest and back Onset at rest , and initially considered to be GI related , the patient took antacids at home with no relief Patient presented to ED endorsing ongoing chest pain , IV Nitroglycerin was initiated , and his chest pain resolved ECG revealed sinus tachycardia heart rate 104 with right bundle branch block with no acute ischemia , repeat ECG sinus rhythm with RBBB with no ischemia Chest x-ray result revealed no acute cardiopulmonary pathology, troponin has been negative x 2 , On evaluation at the bedside the patient denies any further chest pain , palpitations, dyspnea or any other anginal equivalents, he denies any history of DE/CAD/stroke. The patients chest pain appears to be cardiac and not GI related We will wean off Nitroglycerin infusion and transfer out of the ICU Keep on telemetry , monitor / replace electrolytes as needed Start ASA 81 mg daily ,Atorvastatin 40 mg daily and Toprol XL 25 mg daily Due to the above mentioned findings we will proceed with Lexiscan stress test to rule out CAD We will order a 2Decho to assess systolic and valvular function ] Thank you for this consult , cardiology will continue to follow along Mejia Alvarado MD ATTESTATION BY PHYSICIAN I have seen and examined the patient, reviewed the above documentation, participated in medical decision making, made necessary modifications, and agree with the treatment plan as documented by my mid-level provider above. MD MARLENE Mchugh JAMES R MD Mar 07, 2025 10:20
--- NOTE | 2025-03-07 10:40 | NUR ---
Handoff report called to Nelly GAMEZ in 3rd floor for continuity of care, all questions answered. Nelly GAMEZ made aware of pending echocardiogram and lexiscan ordered by Dr. Jose R Alvarado. Patient transferred safely to 314 via wheelchair accompanied by RN and pt's spouse.
--- NOTE | 2025-03-07 11:15 | NUR ---
RECEIVED PATIENT FROM [facility] PATIENT TRANSFERRED TO ROOM VIA WHEELCHAIR. PATIENT ORIENTATED TO ROOM, VITAL SIGNS WERE TAKEN AND NO O2 WAS NEEDED. BELONGINGS WERE BROUGHT WITH PATIENT. ANSWERED ANY QUESTIONS AND CONCERNS PATIENT HAD. CALL LIGHT WITHIN REACH.
--- NOTE | 2025-03-07 11:50 | CONS ---
[facility] CONSULTATION NOTE Date Patient Seen: Mar 07, 2025 Time of Visit: 11:48 Supervising Physician: Dr kM Martin Reason for Consultation: ICU medical management Primary Care Physician: [ ] Outpatient Specialists: [ ] Inpatient Consults: [ ] PROBLEM LIST: Chest pain rule out ACS Hypertension Hyperlipidemia Hyperglycemia in a type 2 diabetic Morbid obesity Obstructive sleep apnea on CPAP at home History of Peripheral arterial disease with bilateral iliac stent HPI: Patient seen and examined in the cardiac ICU, patient with a past medical history for type 2 diabetes, hypertension, obstructive sleep apnea, hyperlipi demia, who presented to the emergency department reporting left-sided chest pain that radiated into his shoulder. Patient states he had a cardiac cath 10 yrs ago and was told everything is clean. Patient reports he had bilateral ilio femoral venogram with bilateral external iliac vein stent done performed by Dr. Win on February 19/2025 .Seen and examined patient in the ER awake alert and coherent on nitroglycerin drip pending heparin drip initiated per ER. Patient denies fever,cough,nausea,vomiting,abdominal pain,palpitation and shortness of breath. Latest vital signs temperature 98.4, heart rate 82, blood pressure 107/57 saturation 98% on room air. Labs: CBC normal. Random glucose 125, total calcium 8.3 seven. Urinalysis significant for urine glucose more than 1000 the rest is unremarkable. Chest x-ray result revealed no acute cardiopulmonary pathology no interval change. ECG result revealed sinus tachycardia heart rate 104 with right bundle branch block ST elevation secondary to IVCD. While in the ER patient received aspirin 325 mg p.o., Nitrostat 0.4 sublingual, started on heparin drip, potassium 25 mEq and patient was on nitroglycerin drip. PAST MEDICAL HX: see above PAST SURGICAL HX: noncontributory SOCIAL HISTORY: No tobacco, ETOH, or illicit drug use Coded Allergies: Penicillins (Unverified Allergy, Unknown, 02/18/25) REVIEW OF SYSTEMS: 12 point ROS reviewed with patient. Pertinent positives mentioned above. Otherwise negative. PHYSICAL EXAM: GENERAL: alert, weak, awake oriented x 3 HEENT: EOMI, Sclera non icteric, moist mucosa NECK: Supple, no JVD, trachea midline LUNGS: Clear breath sounds bilaterally. No wheezes HEART: Regular rate and rhythm. Normal S1 and S2, without murmurs ABD: Abdomen soft, nontender. Bowel sounds present EXT: No clubbing cyanosis or edema NEURO: Alert and oriented to person, follows commands Vital Signs (last 8hr) Date Time Temp Pulse Resp B/P (MAP) Pulse Ox O2 Delivery O2 Flow Rate FiO2 03/07/25 10:00 80 22 92 Room Air 03/07/25 09:30 98.2 79 23 93 Room Air 03/07/25 09:05 98.1 78 20 145/52 99 Room Air* 0 21 03/07/25 07:38 69 20 110/58 95 Room Air* 0 21 03/07/25 07:30 98.2 68 20 110/58 95 Room Air* 0 21 03/07/25 05:34 98.4 82 20 107/57 98 Room Air* 0 21 LABS: Hematology Labs: Test 03/07/25 05:34 Range/Units White Blood Count 6.9 4.8-10.8 K/uL Red Blood Count 4.49 L 4.50-6.20 MIL/uL Hemoglobin 14.1 14.0-18.0 g/dL Hematocrit 41.8 L 42-54 % Mean Corpuscular Volume 93.1 79-99 fL Mean Corpuscular Hemoglobin 31.4 27.0-33.0 pg Mean Corpuscular Hemoglobin Concent 33.7 32.0-36.0 g/dL Red Cell Distribution Width 13.5 11.0-15.5 % Platelet Count 220 130-400 K/uL Mean Platelet Volume 10.3 7.5-10.5 fL Immature Granulocyte % (Auto) 0.4 0-1 % Neutrophils (%) (Auto) 51.4 40.0-77.0 % Lymphocytes (%) (Auto) 35.9 21.0-51.0 % Monocytes (%) (Auto) 8.2 3.0-13.0 % Eosinophils (%) (Auto) 3.8 0.0-8.0 % Basophils (%) (Auto) 0.3 0.0-5.0 % Neutrophils # (Auto) 3.6 1.8-7.7 K/uL Lymphocytes # (Auto) 2.5 1.0-4.8 K/uL Monocytes # (Auto) 0.6 0.1-1.0 K/uL Eosinophils # (Auto) 0.26 0.00-0.70 K/uL Basophils # (Auto) 0.02 0.00-0.20 K/uL Absolute Immature Granulocyte (auto 0.03 0-1 K/uL Nucleated Red Blood Cells 0.0 0.0-0.19 % Erythrocyte Sedimentation Rate 16 0-20 MM/HR Chemistry Labs: Test 03/07/25 09:40 03/07/25 08:41 03/07/25 05:34 Range/Units Troponin I High Sensitivity 5 4-75 ng/L Whole Blood Glucose 151 H 70-110 MG/DL Sodium Level 140 136-145 mmol/L Potassium Level 3.6 3.5-5.1 mmol/L Chloride Level 105 101-111 mmol/L Carbon Dioxide Level 27 21-32 mmol/L Blood Urea Nitrogen 12 7-18 mg/dL Creatinine 0.8 0.5-1.3 mg/dL Glomerular Filtration Rate Calc 105 >90 mL/min Random Glucose 100 70-105 mg/dL Total Calcium 8.1 L 8.5-10.1 mg/dL Magnesium Level 2.00 1.80-2.40 mg/dL Total Bilirubin 0.4 0.2-1.0 mg/dL Aspartate Amino Transf (AST/SGOT) 25 10-37 U/L Alanine Aminotransferase (ALT/SGPT) 36 12-78 U/L Alkaline Phosphatase 50 50-136 U/L Total Creatine Kinase 195 21-232 U/L Total Protein 6.6 6.0-8.3 g/dL Albumin 3.1 L 3.5-5.0 g/dL Thyroid Stimulating Hormone (TSH) 4.40 H 0.36-3.74 uIU/mL Coagulation Labs: Test 03/07/25 07:46 03/06/25 23:30 Range/Units Activated Partial Thromboplast Time 86.3 #H 26.3-35.5 SEC Prothrombin Time 11.2 9.6-11.6 SEC Prothromb Time International Ratio 1.06 0.85-1.15 DIAGNOSTICS / RADIOLOGY RESULTS: [ ] PLAN Patient admitted to the ICU, no acute events overnight, he is not on any drips are pressors, he has been seen and evaluated by Cardiology Plan is to keep patient admitted, PCCU status with telemetry, we are pending echocardiogram and stress test. Follow cardiology recs Heart healthy diet Downgrade NEURO: Minimize central acting medications as possible. Fall Precautions. Well lighted room through the day and minimize interruptions through the night to prevent acute delirium. PULMONARY: Supplemental 02 as needed Titrate Fio2 to keep Spo2 > or = 90% DuoNebs and CPT as needed IS hourly while awake for pulmonary hygiene Out of bed to chair as tolerated VAP Bundle Vent/BIPAP Settings: [ ] Driving pressure: [ ] P Plat: [ ] Static C: [ ] Static R: [ ] P/F Ratio: [ ] CARDIOVASCULAR: Follow hemodynamics. Titrate vasopressor to keep MAP >65 or systolic blood pressure >95mmHg DIPS: [ ] LINES: [ ] GI & NUTRITION: Continue nutritional support Aspirations precautions Prokinetic agents and laxatives as needed KIDNEYS & ELECTROLYTES: Strict monitoring of intake and output Daily weights Avoid nephrotoxic agents Monitor electrolytes and replace as needed Goal urine output of 30mL/hr or 0.5mL/kg/hr Urine output: [ ] Fluid Balance: [ ] ENDOCRINE: Maintain blood glucose between 100-180 at all times. Insulin sliding scale for blood glucose management INFECTIOUS DISEASE: Trend temperature. Paulino-culture if febrile. Micro: [ ] Antibiotics: [ ] HEMATOLOGY & COAGULATION: Monitor H&H. Keep Hgb > 7 Transfuse 1 unit of PRBC for Hgb < 7 Transfuse 1 pack of platelets of platelets < 20, 000 Watch for any signs and symptoms of bleeding SKIN: Pressure ulcer prevention per facility protocol Rehab: PT/OT Prophylaxis: GI: [ ] DVT: [ ] Code Status: Full Resuscitation Disposition: [ ] Other: Total patient care time exceeds 35 minutes excluding all procedures. Case was discussed and seen with my supervising physician. The above plan was formulated and agreed upon. NOREEN WATKINS PAC Mar 07, 2025 11:50
[2025-03-07 16:00] VITALS: BP 101/59; PULSE 79; RESP 18; TEMP 97.8
--- NOTE | 2025-03-07 16:38 | NUR ---
INITIAL/DCP HOME Met w pt this afternoon to discuss dcp. Prior to admission pt was living at home w his , reynaldo and granddtr. Pt states that he is independent w ambulation and ADLs. He is able to drive himself where needed. He owns a cpap. His preferred pharmacy is [facility]. Discharge goal is to return home. Addendum: 03/07/25 at 1640 by SANTO LUNDY CM Amended: Links added.
--- NOTE | 2025-03-07 17:33 | HMCSR ---
APPROVED REPORT EXAM: Two-dimensional and M-mode echocardiogram with Doppler and color Doppler. INDICATION ICD: Chest Pain 2D Dimensions RVDd4.0 cmLVEF(%)59.9 (>50%)LVED Vol(simp.)165.0 mL IVSd0.9 (0.7-1.1cm)FS(%)32 %LVES Vol(simp.)77.0 mL LVDd4.9 (3.8-5.6cm)LA (2D)3.5 (1.6-4.0cm)LVEF(%, simp.)47 % PWd1.2 (0.7-1.1cm)Ao Root(2D)3.1 (2.0-3.7cm) LVDs3.4 (2.5-4.0cm)LVOT diam2.0 (1.8-2.4cm) IVC diam2.2 cm M-Mode Dimensions EPSS1.1 cm LA (MM)3.9 (1.6-4.0cm) Ao Root(MM)2.9 (2.0-3.7cm) Aortic Valve AoV Vmax1.1 m/Bhanu Peak GR5.1 mmHgLVOT Vmax1.0 m/s AoV VTI0.2 mAo Mean GR2.5 mmHgLVOT VTI0.23 m IRAIDA (VMAX)2.75 cm2AVA (VTI) 3.4 cm2 Mitral Valve MV E Cnun784.5 cm/sDECEL Yald015 ms MV A Vmax65.9 cm/sP 1/2 T39 ms E/A ratio1.5MVA (PHT)5.6 cm2 TDI E/E' Hzgtjf37.2E/E' Zoetjkr75.3 Medial E' Peak V8.34 cm/sLateral E' Peak V9.88 cm/s Tricuspid Valve TR Vmax2.7 m/sRVSP28.6 mmHg TR Peak GR30.2 mmHg Left Ventricle The left ventricle is normal size. There is normal left ventricular wall thickness. LVEF is 50-55%. U nable to assess Diastology due to poor tissue Doppler signals. Right Ventricle The right ventricle is normal size. The right ventricular systolic function is normal. Atria The left atrium size is normal. The right atrium size is normal. Aortic Valve The aortic valve is normal in structure. No aortic regurgitation is present. There is no aortic valvu lar stenosis. Mitral Valve The mitral valve is normal in structure. There is no mitral valve regurgitation noted. There is no mi tral valve stenosis. Tricuspid Valve The tricuspid valve is normal in structure. There is trace tricuspid valve regurgitation noted. Pulmonic Valve Pulmonic valve is not well visualized. There is no pulmonic valvular regurgitation. Great Vessels The aortic root is normal in size. The IVC is normal in size and collapses >50% with inspiration. Pericardium There is no pericardial effusion. Other Information Quality : Poor Technically limited study due to body habitus. Conclusion Technically difficult study due to body habitus. The left ventricle is normal size. LVEF is 50-55%. Unable to assess Diastology due to poor tissue Doppler signals. The right ventricular systolic function is normal. Both atria appear normal in size. No hemodynamically significant valvular abnormalities observed. There is no pericardial effusion.
[2025-03-07 20:00] VITALS: O2SAT 97
[2025-03-07] MEDS: PoTASSium chloRIDE 20MEQ ER 20 MEQ ERTAB PO PRN (20:15)
[2025-03-07 20:18] VITALS: BP 104/54; PULSE 73; RESP 20; TEMP 97.9
[2025-03-08 00:12] VITALS: BP 128/78; PULSE 80; RESP 19; TEMP 97.9
[2025-03-08 04:13] VITALS: BP 103/63; PULSE 60; RESP 18; TEMP 98
[2025-03-08 07:56] VITALS: BP 93/54; PULSE 72; RESP 20; TEMP 98
[2025-03-08 08:00] VITALS: O2SAT 94
[2025-03-08] MEDS: REGADENOSON 0.4 MG/5 ML PF SYG IVP ONE (09:35)
--- NOTE | 2025-03-08 10:40 | PN ---
[facility] CARDIOLOG[facility] PROGRESS NOTE Date Patient Seen: Mar 08, 2025 Time of Visit: 10:39 Interval History: [trop neg ] Physical Examination: GENERAL: [No acute distress.] HEAD: [Normal with no signs of head trauma.] EYES: [PERRLA, EOMI, conjunctiva and sclera normal.] ENT: [Hearing grossly intact, normal oropharynx.] NECK: [Supple without JVD. There is no tenderness, lymphadenopathy, or masses. No thyromegaly. Normal carotid upstrokes without bruits.] LUNGS: [Clear breath sounds bilaterally. No wheezes, or rhonchi.] HEART: [Normal rate and rhythm. Normal S1 and S2 without murmurs, gallop or rub.] VASC: [Peripheral pulses +2 bilaterally.] ABD: [Bowel sounds normal, soft, nontender, no masses, no organomegaly. No audible bruits.] : [Not examined] LYMPH: [No lymphadenopathy noted.] EXT: [No clubbing, cyanosis or edema.] SKIN: [No rashes or lesions noted.] NEURO: [Awake, alert, and oriented x3. No focal sensory or strength deficits noted.] Laboratory: [ ] Hematology Labs: Test 03/07/25 05:34 Range/Units White Blood Count 6.9 4.8-10.8 K/uL Red Blood Count 4.49 L 4.50-6.20 MIL/uL Hemoglobin 14.1 14.0-18.0 g/dL Hematocrit 41.8 L 42-54 % Mean Corpuscular Volume 93.1 79-99 fL Mean Corpuscular Hemoglobin 31.4 27.0-33.0 pg Mean Corpuscular Hemoglobin Concent 33.7 32.0-36.0 g/dL Red Cell Distribution Width 13.5 11.0-15.5 % Platelet Count 220 130-400 K/uL Mean Platelet Volume 10.3 7.5-10.5 fL Immature Granulocyte % (Auto) 0.4 0-1 % Neutrophils (%) (Auto) 51.4 40.0-77.0 % Lymphocytes (%) (Auto) 35.9 21.0-51.0 % Monocytes (%) (Auto) 8.2 3.0-13.0 % Eosinophils (%) (Auto) 3.8 0.0-8.0 % Basophils (%) (Auto) 0.3 0.0-5.0 % Neutrophils # (Auto) 3.6 1.8-7.7 K/uL Lymphocytes # (Auto) 2.5 1.0-4.8 K/uL Monocytes # (Auto) 0.6 0.1-1.0 K/uL Eosinophils # (Auto) 0.26 0.00-0.70 K/uL Basophils # (Auto) 0.02 0.00-0.20 K/uL Absolute Immature Granulocyte (auto 0.03 0-1 K/uL Nucleated Red Blood Cells 0.0 0.0-0.19 % Erythrocyte Sedimentation Rate 16 0-20 MM/HR Chemistry Labs: Test 03/08/25 05:20 03/07/25 15:11 03/07/25 05:34 Range/Units Whole Blood Glucose 114 H 70-110 MG/DL Troponin I High Sensitivity 6 4-75 ng/L Sodium Level 140 136-145 mmol/L Potassium Level 3.6 3.5-5.1 mmol/L Chloride Level 105 101-111 mmol/L Carbon Dioxide Level 27 21-32 mmol/L Blood Urea Nitrogen 12 7-18 mg/dL Creatinine 0.8 0.5-1.3 mg/dL Glomerular Filtration Rate Calc 105 >90 mL/min Random Glucose 100 70-105 mg/dL Total Calcium 8.1 L 8.5-10.1 mg/dL Magnesium Level 2.00 1.80-2.40 mg/dL Total Bilirubin 0.4 0.2-1.0 mg/dL Aspartate Amino Transf (AST/SGOT) 25 10-37 U/L Alanine Aminotransferase (ALT/SGPT) 36 12-78 U/L Alkaline Phosphatase 50 50-136 U/L Total Creatine Kinase 195 21-232 U/L Total Protein 6.6 6.0-8.3 g/dL Albumin 3.1 L 3.5-5.0 g/dL Thyroid Stimulating Hormone (TSH) 4.40 H 0.36-3.74 uIU/mL Coagulation Labs: Test 03/07/25 07:46 03/06/25 23:30 Range/Units Activated Partial Thromboplast Time 86.3 #H 26.3-35.5 SEC Prothrombin Time 11.2 9.6-11.6 SEC Prothromb Time International Ratio 1.06 0.85-1.15 Diagnostics / Radiology: [Copy/Paste Echos/Imaging Report here] Impression and Plan: [ Chest pain Hypertension Hyperlipidemia Diabetes Morbid obesity POA Venous insufficiency s/p bilateral stenting HUANG on CPAP Plan: [#Chest pain ACS rule out Endorsing anterior epigastric chest pain that extends to his chest and back Onset at rest , and initially considered to be GI related , the patient took antacids at home with no relief Patient presented to ED endorsing ongoing chest pain , IV Nitroglycerin was initiated , and his chest pain resolved ECG revealed sinus tachycardia heart rate 104 with right bundle branch block with no acute ischemia , repeat ECG sinus rhythm with RBBB with no ischemia Chest x-ray result revealed no acute cardiopulmonary pathology, troponin has been negative x 2 , On evaluation at the bedside the patient denies any further chest pain , palpitations, dyspnea or any other anginal equivalents, he denies any history of [place]/CAD/stroke. The patients chest pain appears to be cardiac and not GI related Keep on telemetry , monitor / replace electrolytes as needed Start ASA 81 mg daily ,Atorvastatin 40 mg daily and Toprol XL 25 mg daily Due to the above mentioned findings we will proceed with Lexiscan stress test to rule out CAD 2d echo normal ] Thank you for this consult , cardiology will continue to follow along Cecile Alvarado MD] CECILE ALVARADO MD Mar 08, 2025 10:40
[2025-03-08 12:00] VITALS: BP 112/61; PULSE 74; RESP 21; TEMP 97.8
--- NOTE | 2025-03-08 12:59 | HMCSR ---
APPROVED REPORT Height: 5 ft 9in Weight: 384 lbs TEST INDICATIONS Chest Pain The imaging protocol used to acquire images was Rest Tc-99m/stress Tc-99m 1 day Consent: The procedure was explained and understood by the patient. Informerd consent was witnessed Radha Glaser RN First, low dose rest was performed then high dose stress. RESTING DATA: The resting ekg shows: NSR, RBBB Rest SPECT myocardial perfusion imaging was performed in supine position minutes following the intra venous injection of 11.9 mCi of Tc-99 Sestamibi. Time of rest injection: 08:10: Date: 03/08/2025 PHARMACOLOGIC STRESS: Pharmacologic stress test was performed by injecting regadenoson 0.4 mg IV push followed by the intra venous injection of 28 mCi of Tc-99 Sestamibi. Time of stress injection: 09:40: Date: 03/08/2025 Heart Rate at time of stress injection: 86 bpm. Gated Stress SPECT was performed 60 minutes after stress injection. The images were gated to evaluate regional wall motion and calculate left ventricular ejection fracti on. STRESS DETAILS Reason for Termination: Infusion complete Stress Symptoms: Dyspnea Max HR Achieved: 110 bpm % of APMHR Achieved: 78 Max Blood Pressure: 142/67 mmHg Stress ECG: NSR, RBBB Study quality was good. Lung uptake was Normal. LEFT VENTRICLE The left ventricular ejection fraction was calculated to be 64%.TID = 1.09. LV PERFUSION Stress Perfusion Normal IMPRESSION Normal pharmacologic nuclear stress test. Conclusion Normal Tc-99m Sestamibi stress test with an LVEF of 64% and a TID of 1.09 No reversible ischemia.
[2025-03-08] MEDS ORDERED: METO25TA3 PO (13:54)
[2025-03-08] MEDS ORDERED: AEC81 PO (13:54)
[2025-03-08] MEDS ORDERED: FAMO20TA8 PO (13:54)
--- NOTE | 2025-03-08 14:12 | DS ---
Discharge Summary Hospital Course Summary: DATE OF ADMISSION:[03/07/2025] DATE OF DISCHARGE:[03/08/2025] DISPOSITION:[Home] CONDITION:[Medically stable] CONSULTANTS:[[facility], ICU] FOLLOW UP APPOINTMENTS:[PCP2 to 3 days. [facility] in two weeks] PROCEDURES:[Lexiscan 03/08/2025] IMAGING: report attached to summary MICROBIOLOGY: report attached to summary ACTIVITY:[Independent] HOME MEDICATIONS: see [facility] NEW MEDICATIONS:[Aspirin 81 mg p.o. daily, famotidine 20 mg p.o. daily, [id number] mg p.o. 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 On admission troponins were negative x4. Chest x-ray was negative 2D echo showed EF of 50 to 55% unable to assess diastolic due to pre tissue Doppler Pseudomonas. During hospitalization irrigation teacher was consulted and recommended Lexiscan which today came back negative. Nurse practitioner was able to contact irrigation teacher and per Dr. Jennifer Alvarado patient is cleared to be discharged home and was in patient's home medications as already set up. Follow up in two weeks. Patient was also advised to follow up with PCP in2 to 3 days POA Procedure(s): REVIEW OF SYSTEMS CONSTITUTIONAL: Denies fevers, chills, or night sweats. No unintentional weight loss reported. NEUROLOGICAL: Denies headache, amaurosis fugax, motor weakness, sensory deficit, vertigo/spinning sensation, gait abnormalities, or tremors. ENT: No hearing loss, otalgia, otorrhea, rhinitis, rhinorrhea, hoarseness, or sore throat. CARDIOVASCULAR: Denies any chest pain Denies any exertional angina, dyspnea on exertion, orthopnea, paroxysmal nocturnal dyspnea, palpitations, life- threatening arrhythmias, claudication. PULMONARY: Denies any shortness of breath, cough, phlegm/sputum, hemoptysis, pleuritic chest pain. SLEEP: Denies morning headaches, daytime somnolence or napping. Denies difficulty falling asleep, staying asleep, waking from sleep. Denies knowledge of snoring. GASTROINTESTINAL: Denies any type of dysphagia to either liquids or solids. Denies nausea, vomiting, pyrosis, early satiety, abdominal pain, diarrhea, constipation, or changes in stool consistency or caliber. Denies coffee-ground emesis, hematemesis, hematochezia, or melanotic stools. GENITOURINARY: Denies frequency, urgency, nocturia, hematuria or incontinence (Storage/Irritative symptoms.) Low urinary stream, straining to void, urinary intermittency or hesitancy, splitting of the voiding stream, terminal dribbling. ENDOCRINOLOGIC: Denies polyuria, polydipsia, polyphagia or heat/cold intolerances. HEMATOLOGIC: Denies thrombophilia/previous clots, or coagulopathy/bleeding disorders. ONCOLOGIC: Denies personal history of malignancy. DERMATOLOGIC: Denies rashes or pruritus. PSYCHIATRIC: Denies any suicidal or homicidal ideation. Denies hallucinations. Assessment/Plan: ASSESSMENT: Chest pain rule out ACS POA Hypertension POA Hyperlipidemia POA Diabetes POA Peripheral arterial disease with bilateral iliac stent POA Morbid obesity POA PHYSICAL EXAM GENERAL APPEARANCE: The patient is awake, alert, and oriented, in no acute cardiopulmonary distress. NEUROLOGICAL: Cranial nerves II-XII grossly intact. Motor is 5/5 in bilateral upper and lower extremities proximal to distal. No sensory deficits. HEENT: Face is symmetric. Pupils are equal and reactive. Extraocular movements are intact. NECK: Supple. No JVD. No thyromegaly. No submental, submandibular, pre- /postauricular, occipital or supraclavicular lymphadenopathy. CHEST: Normal chest expansion. No Telemetry. LUNGS: Absence of any rales, rhonchi or any wheezing. CARDIOVASCULAR: Regular. S1 and S2 normal. No appreciable rubs, murmurs or gallops. ABDOMEN: Soft, nontender, and nondistended. There is no rebound, voluntary guarding, or rigidity. : Deferred. No Wyatt. EXTREMITIES: Non-edematous and not cyanotic. No clubbing. Good capillary refill. SKIN: No skin breakdown. Home Medications: Active Scripts Metoprolol Succinate (Toprol Xl) 25 Mg Tab.er.24h, 25 MG PO DAILY, #60 TAB Prov:OFIARA,STEPH B [facility] 03/08/25 Famotidine (Famotidine) 20 Mg Tablet, 20 MG PO DAILY, #60 TAB Prov:STEPH WHITEHEAD [facility] 03/08/25 Aspirin (ASPIRIN 81 MG ECTAB) 81 Mg Ectab, 81 MG PO DAILY, #60 TAB.EC Prov:STEPH WHITEHEAD [facility] 03/08/25 Reported Medications Clomiphene Citrate (Clomid) 50 Mg Tablet, 50 MG PO 2xwek, TAB 02/19/25 Glimepiride (Glimepiride) 4 Mg Tablet, 1 TAB PO DAILY for 30 Days, #30 TAB 0 Refills 02/19/25 Ergocalciferol (Vitamin D2) (Vitamin D2) 1,250 Mcg (69956 Unit) Capsule, 1250 MCG PO 2X/WEEK, CAP 02/18/25 Aspirin (Aspirin EC) 81 Mg Tablet.dr, 81 MG PO DAILY, TAB 02/18/25 Icosapent Ethyl (Vascepa) 1 Gram Capsule, 2 GM PO BID, CAP 02/18/25 Rosuvastatin Calcium (Rosuvastatin Calcium) 10 Mg Tablet, 10 MG PO DAILY, TAB 02/18/25 Lisinopril/Hydrochlorothiazide (Lisinopril-Hctz 20-25 mg Tab) 20 Mg-25 Mg Tablet, 1 EACH PO DAILY, TAB 02/18/25 Metformin HCl (Metformin HCl ER) 1,000 Mg Tab.er.24, 1000 MG PO BID RESUME METFORMIN ON 02/20/25 02/18/25 Dapagliflozin Propanediol (Farxiga) 10 Mg Tablet, 10 MG PO DAILY, TAB 02/18/25 Time spent arranging discharge: 31-60 minutes ATTESTATION BY PHYSICIAN I have seen and examined the patient. I reviewed the documentation, medical decision making, and treatment plan as noted by the mid-level provider above. I agree with the findings and plan of care. Godfrey Almaguer MD NIHARIKAULISESKALLIESTEPH Julia [facility] Mar 08, 2025 14:12 GODFREY ALMAGUER MD Mar 09, 2025 12:37
[2025-03-08 15:46] VITALS: BP 118/68; PULSE 79; RESP 20; TEMP 97.8
--- NOTE | 2025-03-08 16:56 | NUR ---
PATIENT DISCHARGE HOME ID BAND,IV AND TELE DOM REMOVED. DISCHARGE INSTRUCTIONS EXPLAINED AND GIVEN TO PATIENT. PATIENT VERBALIZED UNDERSTANDING. BELONGINGS PACKED AND TAKEN BY PATIENT. WHEELED DOWN TO PRIVATE CAR.
== END 2025-03-08 16:45 | disposition home or self-care (01) ==
LOC: EDH 23:11 → EDHIP 03-07 03:09 → INTOOBSV 03-07 03:09 → 2CV 03-07 07:30 → 3CH 03-07 11:15
PROVIDERS: ADMIT Internal Medicine; ATTEND Internal Medicine
DX: R07.89 Other chest pain (principal); I10 Essential (primary) hypertension; E78.5 Hyperlipidemia, unspecified; E11.51 Type 2 diabetes mellitus with diabetic peripheral angiopathy without gangrene; E11.65 Type 2 diabetes mellitus with hyperglycemia; E66.01 Morbid (severe) obesity due to excess calories; Z88.0 Allergy status to penicillin; Z68.43 Body mass index [BMI] 50.0-59.9, adult; Z79.899 Other long term (current) drug therapy; Z98.890 Other specified postprocedural states
CPT/HCPCS: 99285; 83735 ×2; 84484 ×4; 80048; 85025 ×2; 81001; 36415 ×2; 71045; 93005 ×2; 96365; 96375; 84443; 82550; 80053; 85610; 85730 ×2; 85651; 82948 ×7; 93017; 78452; 93306; J1644 ×2; A9500 ×2; G0378 ×2; J2785; A4510

== ENCOUNTER 2025-04-29 01:39 | Emergency (ER) | payer BC ==
[~2025-04-29] VITALS: Ht 175.3 cm; Wt 159.7 kg
[2025-04-29 02:11] LABS: IMMATURE GRANULOCYTE ABSOLUTE 0.03 K/uL (0-1); NUCLEATED RED BLOOD CELLS 0.0 % (0.0-0.19); PLATELET COUNT (AUTO) 181 K/uL (130-400); RED BLOOD CELL COUNT(AUTO) 4.97 MIL/uL (4.50-6.20); RED CELL DISTRIBUTION WIDTH 13.3 % (11.0-15.5); WHITE BLOOD COUNT (AUTO) 6.4 K/uL (4.8-10.8)
[2025-04-29 02:18] LABS: CREATININE 0.9 mg/dL (0.5-1.3); GLOMERULAR FILTR. RATE CALC 101.0 mL/min (>90); GLUCOSE,RANDOM 114.0 mg/dL (70-105); SODIUM SERUM 131.0 mmol/L (136-145); UREA NITROGEN, BLOOD 14.0 mg/dL (7-18)
[2025-04-29 02:29] LABS: RAPID GROUP A STREP negative (NEGATIVE)
[2025-04-29 02:33] LABS: SARS-CoV-2, RNA, NAAT NEGATIVE SARS CoV-2 (NEGATIVE)
[2025-04-29 02:39] LABS: INFLUENZA TYPE B Negative For Type B (NEGATIVE)
[2025-04-29 02:44] LABS: INFLUENZA TYPE A Positive For Type A (NEGATIVE)
--- NOTE | 2025-04-29 03:11 | ERN ---
ED Note History of Present Illness Stated Complaint: C/O DIZZINESS, SOB, HEADACHE X 4 DAYS Chief Complaint: Dizzy/Light Headed Time Seen by MD: 01:46 Dictation: This is a 54-year-old morbidly obese male who presented to the emergency room with complaints of dizziness and lightheadedness as well as shortness of breath headache and general feeling of unwell. Been going on for the past 4 days. He has not checked his temperature at home he stated that he saw his PCP yesterday and received benzonatate and Levaquin. He also had COVID flu strep swabs that were negative. As he began experiencing shortness of breath severe nasal congestion he decided to come into the ER No nausea vomitings diarrhea. No blurred vision diplopia motor weakness seizure activity. No chest pain diaphoresis. He had extensive cardiac evaluation recently in February which was negative. Temperature 99.3 pulse 105 respirations 20 blood pressure 142/75 with a pulse oximetry of 95% on room air Chronic medical problems include diabetes mellitus, hypertension, hyperch olesterolemia, obstructive sleep apnea syndrome and coronary artery disease. Allergies: Coded Allergies: Penicillins (Unverified Allergy, Unknown, 02/18/25) Home Meds Active Scripts Metoprolol Succinate (Toprol Xl) 25 Mg Tab.er.24h, 25 MG PO DAILY, #60 TAB Prov:[facility] 03/08/25 Famotidine (Famotidine) 20 Mg Tablet, 20 MG PO DAILY, #60 TAB Prov:STEPH [facility] 03/08/25 Aspirin (ASPIRIN 81 MG ECTAB) 81 Mg Ectab, 81 MG PO DAILY, #60 TAB.EC Prov:STEPH [facility] 03/08/25 Reported Medications Clomiphene Citrate (Clomid) 50 Mg Tablet, 50 MG PO 2xwek, TAB 02/19/25 Glimepiride (Glimepiride) 4 Mg Tablet, 1 TAB PO DAILY for 30 Days, #30 TAB 0 Refills 02/19/25 Ergocalciferol (Vitamin D2) (Vitamin D2) 1,250 Mcg (52316 Unit) Capsule, 1250 MCG PO 2X/WEEK, CAP 02/18/25 Aspirin (Aspirin EC) 81 Mg Tablet.dr, 81 MG PO DAILY, TAB 02/18/25 Icosapent Ethyl (Vascepa) 1 Gram Capsule, 2 GM PO BID, CAP 02/18/25 Rosuvastatin Calcium (Rosuvastatin Calcium) 10 Mg Tablet, 10 MG PO DAILY, TAB 02/18/25 Lisinopril/Hydrochlorothiazide (Lisinopril-Hctz 20-25 mg Tab) 20 Mg-25 Mg Tablet, 1 EACH PO DAILY, TAB 02/18/25 Metformin HCl (Metformin HCl ER) 1,000 Mg Tab.er.24, 1000 MG PO BID RESUME METFORMIN ON 02/20/25 02/18/25 Dapagliflozin Propanediol (Farxiga) 10 Mg Tablet, 10 MG PO DAILY, TAB 02/18/25 Past Medical History Past Medical History: CAD, Diabetes-Type II, High Cholesterol, Hypertension, Other Additional Past Medical Hx: SLEEP APNEA Surgical History: Cholecystectomy, Other Surgical History Other: BILATERAL ILIAC STENT 02/19 Family History: Negative Social History: Negative RN Note Reviewed/Agreed w/PFSH: Yes Review of System Dictation Constitutional: Negative for fever,chills, and weight loss Eyes: Negative for injury, pain,redness, and discharge ENT: Negative for injury,pain or swelling Cardiovascular: Negative for chest pain, palpitations, and edema positive for feeling dizzy generalized body aches Respiratory: Positive for shortness of breath, cough, and wheezing, Abdomen/GI: Negative for abdominal pain, nausea, vomiting, diarrhea, and constipation Back: Negative for injury and pain : Negative for injury, bleeding and discharge MS/Extremity: Negative for injury and deformity Skin: Negative for rash, and discoloration Neuro: Negative for headache, weakness, numbness, tingling, and seizure Psych: Negative for suicide ideation, homicidal ideation, and hallucinations Initial Vital Sign VS Vital Signs Date Time Temp Pulse Resp B/P (MAP) Pulse Ox O2 Delivery O2 Flow Rate FiO2 04/29/25 01:41 99.3 105 20 142/75 95 Room Air 04/29/25 02:17 0 21 Physical Exam Dictation General: awake, alert, NAD extremely obese with a BMI of 52 Head/Face: Normocephalic, atraumatic flush Eyes: PERRL, EOMI, vision at baseline ENT: oral cavity clear, TMs clear, no signs of infection nasal stuffiness Neck: Trachea midline, supple, no nuchal rigidity Cardiovascular: RRR, normal S1/S2, No MRGs, no JVD Respiratory: Decreased breath sounds prolonged expiratory phase Abdomen: Soft, non-tender, non-distended, normal bowel sounds, no guarding or rebound. Skin: Warm, dry, normal turgor, no rash MS/Extremity: Pulses equal, no cyanosis, neurovascular intact, FROM Neuro: COAx4, GCS 15, strength 5/5, CN 2-12 intact, normal cerebellar exam, normal gait, Psych: Normal behavior, mood, and affect normal Extremities-trace edema without any palpable cords, Homans sign is negative Results (Laboratory/Radiology) Laboratory/Radiology Laboratory Tests Test 04/29/25 02:04 04/29/25 02:11 White Blood Count 6.4 K/uL (4.8-10.8) Red Blood Count 4.97 MIL/uL (4.50-6.20) Hemoglobin 15.7 g/dL (14.0-18.0) Hematocrit 47.2 % (42-54) Mean Corpuscular Volume 95.0 fL (79-99) Mean Corpuscular Hemoglobin 31.6 pg (27.0-33.0) Mean Corpuscular Hemoglobin Concent 33.3 g/dL (32.0-36.0) Red Cell Distribution Width 13.3 % (11.0-15.5) Platelet Count 181 K/uL (130-400) Mean Platelet Volume 10.3 fL (7.5-10.5) Immature Granulocyte % (Auto) 0.5 % (0-1) Neutrophils (%) (Auto) 65.6 % (40.0-77.0) Lymphocytes (%) (Auto) 18.2 % (21.0-51.0) L Monocytes (%) (Auto) 13.0 % (3.0-13.0) Eosinophils (%) (Auto) 2.4 % (0.0-8.0) Basophils (%) (Auto) 0.3 % (0.0-5.0) Neutrophils # (Auto) 4.2 K/uL (1.8-7.7) Lymphocytes # (Auto) 1.2 K/uL (1.0-4.8) Monocytes # (Auto) 0.8 K/uL (0.1-1.0) Eosinophils # (Auto) 0.15 K/uL (0.00-0.70) Basophils # (Auto) 0.02 K/uL (0.00-0.20) Absolute Immature Granulocyte (auto 0.03 K/uL (0-1) Nucleated Red Blood Cells 0.0 % (0.0-0.19) Sodium Level 131 mmol/L (136-145) L Potassium Level 4.0 mmol/L (3.5-5.1) Chloride Level 96 mmol/L (101-111) L Carbon Dioxide Level 26 mmol/L (21-32) Blood Urea Nitrogen 14 mg/dL (7-18) Creatinine 0.9 mg/dL (0.5-1.3) Glomerular Filtration Rate Calc 101 mL/min (>90) Random Glucose 114 mg/dL (70-105) H Total Calcium 8.7 mg/dL (8.5-10.1) Influenza Type A Antigen Positive For Type A Influenza Type B Antigen Negative For Type B SARS-CoV-2, RNA, NAAT NEGATIVE SARS CoV-2 Group A Streptococcus Rapid negative (NEGATIVE) Labs Reviewed?: Yes X-RAY Comment: REASON: influenza, Shortness of breath BMI 52 ORDERING PHYSICIAN: SILVINA BUSCH MD PROCEDURE: CXR1VW - CHEST 1VW EXAM: CR Chest, single view. CLINICAL HISTORY: Influenza, Shortness of breath, BMI 52 (Hx) / influenza, Shortness of breath, BMI 52. COMPARISON: Prior chest radiograph dated March 06, 2025. FINDINGS: The lungs show no infiltrate or other acute findings. No pleural effusion or pneumothorax. The cardiomediastinal silhouette is within normal limits. No acute osseous abnormality. IMPRESSION: No acute cardiopulmonary pathology is evident. Compared with the prior study, there is no significant change in the interval. /[place] DICTATED BY: ORTIZ CAMPUZANO Jr., MD DATE: 04/29/25533 ELECTRONICALLY SIGNED BY: ORTIZ CAMPUZANO Jr., MD DATE: 04/29/25533 Ultrasound Comment: Echocardiogram Conclusion Technically difficult study due to body habitus. The left ventricle is normal size. LVEF is 50-55%. Unable to assess Diastology due to poor tissue Doppler signals. The right ventricular systolic function is normal. Both atria appear normal in size. No hemodynamically significant valvular abnormalities observed. There is no pericardial effusion. DICTATED BY: VIRGINIA ROSARIO MD DATE: 03/07/25 1121 ELECTRONICALLY SIGNED BY: VIRGINIA ROSARIO MD DATE: 03/07/25 2498 ED Course ED Course Orders Procedure Category Date Status Time Cbc With Differential LAB 04/29/25 Complete 02:03 Basic Metabolic Panel LAB 04/29/25 Complete 02:03 Covid Rna Naat LAB 04/29/25 Complete 02:03 Influenza Type A & B, LAB 04/29/25 Complete Rapid 02:03 Rapid (Group A Strep) LAB 04/29/25 Complete 02:03 0.9%Nacl 1000ml (Ns PHA 04/29/25 Complete 1000ml) 03:30 Oseltamivir Phosphate PHA 04/29/25 Complete (Tamiflu) 03:30 Ketorolac PHA 04/29/25 Complete Tromethamine 30mg/Ml 03:30 Chest 1vw RAD 04/29/25 Resulted 03:08 Dexamethasone 4mg/Ml PHA 04/29/25 Complete 1ml Vial (Dexametha 04:30 Albuterol 0.083% PHA 04/29/25 Complete 2.5mg/3ml (Proventil 04:30 Albuterol 0.083% PHA 04/29/25 Complete 2.5mg/3ml (Proventil 04:06 Current Medications Medications (Trade) Dose Ordered Sig/Caitlin Route PRN Reason Start Time Stop Time Status Last Admin Dose Admin Albuterol Sulfate (Proventil 0.083% 2.5mg/3ml) 2.5 mg STK-MED ONCE IH 04/29/25 04:06 04/29/25 04:06 DC Albuterol Sulfate (Proventil 0.083% 2.5mg/3ml) 2.5MG ONCE ONCE IH 04/29/25 04:30 04/29/25 04:31 DC 04/29/25 04:43 Dexamethasone Sodium Phosphate (dexaMETHasone 4MG/ML 1ML VIAL) 6 mg ONCE ONCE IVP 04/29/25 04:30 04/29/25 04:31 DC 04/29/25 04:31 Ketorolac Tromethamine (toRADol) 30 mg ONCE ONCE IVP 04/29/25 03:30 04/29/25 03:31 DC 04/29/25 03:43 Oseltamivir Phosphate (Tamiflu) 75 mg ONCE ONCE PO 04/29/25 03:30 04/29/25 03:31 DC 04/29/25 03:41 Sodium Chloride 1,000 ml @ 0 mls/hr ONCE ONCE IV 04/29/25 03:30 04/29/25 03:31 DC 04/29/25 03:41 Vital Signs Date Time Temp Pulse Resp B/P (MAP) Pulse Ox O2 Delivery O2 Flow Rate FiO2 04/29/25 04:52 98.8 72 19 122/62 96 Room Air* 0 21 04/29/25 04:44 79 19 04/29/25 02:17 100.9 102 18 117/59 95 Room Air* 0 21 04/29/25 01:41 99.3 105 20 142/75 95 Room Air Medical Decision Making MDM Differential diagnosis- Influenza, COVID, RSV, streptococcal pharyngitis, otitis media, acute viral syndrome, pneumonia, congestive heart failure This is a 54-year-old morbidly obese male who presented to the emergency room with complaints of dizziness and lightheadedness as well as shortness of breath headache and general feeling of unwell. Been going on for the past 4 days. He has not checked his temperature at home he stated that he saw his PCP yesterday and received benzonatate and Levaquin. He also had COVID flu strep swabs that were negative. As he began experiencing shortness of breath severe nasal congestion he decided to come into the ER No nausea vomitings diarrhea. No blurred vision diplopia motor weakness seizure activity. No chest pain diaphoresis. He had extensive cardiac evaluation recently in February which was negative. Temperature 99.3 pulse 105 respirations 20 blood pressure 142/75 with a pulse oximetry of 95% on room air Chronic medical problems include diabetes mellitus, hypertension, hypercholesterolemia, obstructive sleep apnea syndrome and coronary artery disease. Rationale: Tests considered and ordered secondary to shared decision making include: Labs, chest x-ray Previous outside records reviewed: Old ER visits. Risk of complication and/or morbidity or mortality of patient management: None Medications-Per medication reconciliation Need for hospitalization: Patient does not meet criteria for hospitalization. Need for emergency major/minor surgery: No There are no social concerns with this patient. Prescription drug management Prescriptions will include symptomatic care Patient's prior external medical records from other ER visits were reviewed by me as indicated. Prior testing and results from previous visits were reviewed. Prior tests were taken into account with medical decision making and resource utilization, independent historian/historians were used to obtain complete medical history. I independently interpreted the test that were performed, results were reviewed by me and considered findings on radiology if ordered. Medical management and examination interpretation discussions were had by me with other qualified healthcare professionals as indicated for the patient's care. Problem List Problem List: (1) Influenza A (2) Morbid obesity (3) Dehydration DX & DISP Disposition: Discharge Departure Impression: Primary Impression: Influenza A Additional Impressions: Dehydration, Morbid obesity Condition: Stable Scripts Oseltamivir Phosphate (Oseltamivir Phosphate) 75 Mg Capsule 1 CAP PO BID for 5 Days, #10 CAP 0 Refills Prov: SILVINA BUSCH MD 04/29/25 Prednisone (Prednisone) 20 Mg Tablet 1 TAB PO AD for 6 Days, #14 TAB 0 Refills TAKE 1 TAB BY MOUTH THREE TIMES PER DAY X3 DAYS, THEN TAKE 1 TAB BY MOUTH TWICE A DAY X2 DAYS, THEN TAKE 1 TAB BY MOUTH ONCE A DAY X1 DAY. Prov: SILVINA BUSCH MD 04/29/25 Referrals: MIRIAM RICHARDSON (PCP) SILVINA BUSCH MD Apr 29, 2025 03:11
[2025-04-29] MEDS: OSELTAMIVIR PHOSPHATE 75 MG CAP PO ONE (03:41)
[2025-04-29] MEDS: 0.9%NACL 1000ML 1,000 ML IV ONE (03:41)
--- NOTE | 2025-04-29 04:35 | HMCIMG ---
EXAM: CR Chest, single view. CLINICAL HISTORY: Influenza, Shortness of breath, BMI 52 (Hx) / influenza, Shortness of breath, BMI 52. COMPARISON: Prior chest radiograph dated March 06, 2025. FINDINGS: The lungs show no infiltrate or other acute findings. No pleural effusion or pneumothorax. The cardiomediastinal silhouette is within normal limits. No acute osseous abnormality. IMPRESSION: No acute cardiopulmonary pathology is evident. Compared with the prior study, there is no significant change in the interval. /[place]
[2025-04-29] MEDS: ALBUTEROL 0.083% 2.5 MG/3 ML INH IH ONE ×2 (04:43)
[2025-04-29 04:44] VITALS: PULSE 79; RESP 19
[2025-04-29 06:02] VITALS: BP 118/67; PULSE 70; RESP 18; TEMP 98.6; O2SAT 96
== END 2025-04-29 06:04 | disposition home or self-care (01) ==
LOC: EDH 01:39
DX: J10.1 Influenza due to other identified influenza virus with other respiratory manifestations (principal); E86.0 Dehydration; E66.01 Morbid (severe) obesity due to excess calories; E11.9 Type 2 diabetes mellitus without complications; E78.00 Pure hypercholesterolemia, unspecified; G47.30 Sleep apnea, unspecified; I10 Essential (primary) hypertension; I25.10 Atherosclerotic heart disease of native coronary artery without angina pectoris; Z20.822 Contact with and (suspected) exposure to COVID-19; Z68.43 Body mass index [BMI] 50.0-59.9, adult; Z79.82 Long term (current) use of aspirin; Z79.84 Long term (current) use of oral hypoglycemic drugs; Z79.899 Other long term (current) drug therapy; Z88.0 Allergy status to penicillin; Z90.49 Acquired absence of other specified parts of digestive tract
CPT/HCPCS: 99284; 96374; 71045; 87635; 96361; 96375; 80048; 85025; 87880; 87804 ×2; 36415; 94640; J1100; J1885; J7030

== ENCOUNTER 2025-05-12 23:33 | Emergency (ER) | payer BC ==
[~2025-05-12] VITALS: Ht 175.3 cm; Wt 321.1 kg
[~2025-05-12 23:33] MED LIST changes: +AEC81 PO; +FAMO20TA8 PO; +METO25TA3 PO; +OSEL75CA17 PO; +PRED20TA3 PO
--- NOTE | 2025-05-13 02:30 | HMCIMG ---
EXAM: US Duplex bilateral Lower Extremity Arteries. CLINICAL HISTORY: PAD severe pain recent procedure TECHNIQUE: Real-time ultrasound scan of the arteries of the bilateral lower extremity with 2-D clarke scale, color Doppler flow, and spectral waveform analysis. COMPARISON: None provided. FINDINGS: Atherosclerotic wall thickening was noted in bilateral lower extremity arteries. COMMON FEMORAL ARTERY: No occlusion or significant stenosis. Triphasic waveform. Peak systolic velocity is 137 cm/s on the right side and 135 cm/s on the left side. SUPERFICIAL FEMORAL ARTERY: No occlusion or significant stenosis. Triphasic waveform. Peak systolic velocities are 120, 107, and 111 cm/s on the right and 104, 89, and 85 cm/s on the left in the proximal, mid, and distal superficial femoral arteries, respectively. POPLITEAL ARTERY: No occlusion or significant stenosis. Triphasic waveform. Peak systolic velocity is 81 cm/s on the right and 66 cm/s on the left. CALF ARTERIES: Monophasic waveforms and reduced flow in the right posterior tibial artery with a peak systolic velocity of 30 cm/s, anterior tibial artery distal course with a peak systolic velocity of 95 cm/s, and dorsalis pedis artery with a peak systolic velocity of 84 cm/s. The waveform is monophasic in the left posterior tibial artery with a peak systolic velocity of 99 cm/s. However, the waveform in the left anterior tibial artery and dorsalis pedis artery is triphasic with peak systolic velocities of 74 and 125 cm/s, respectively. OTHERS: A thrombus is seen in the right SSV. IMPRESSION: 1. No flow-limiting stenosis or occlusion in the bilateral lower extremity arteries. 2. Monophasic waveforms and reduced flow of right posterior tibial and dorsalis pedis arteries and left posterior tibial artery could be attributed to multilevel atherosclerosis. 3. Right SSV thrombus. As per the patient, there was a procedure done on 05/01/2025 with some foam to clot the vein. 4. Multilevel atherosclerotic wall thickening noted in bilateral lower extremity arteries. /[place]
--- NOTE | 2025-05-13 02:53 | NUR ---
ASSUMED PT CARE AT THIS TIME
--- NOTE | 2025-05-13 03:17 | ERN ---
ED Note History of Present Illness Stated Complaint: RIGHT LEG PAIN Chief Complaint: Lower Extremity Pain/Injury Time Seen by MD: 23:37 Dictation: This is a morbidly obese 54-year-old male who presented to the emergency room with complaints of right leg pain. He stated that he has severe hyper pigmentation of the lower extremities and venous stasis. Hardly the healthcare network consultant apparently has been working with him to address this problem and as the initial step he stated that he had bilateral stents in the inguinal area - subsequently he did a procedure to occlude SSV-superficial saphenous vein with the idea of collaterals and improving the venous return. This would be followed by compression stockings. Apparently patient had the procedure on 05/01 2025. He began experiencing pain in the right groin and right leg area and he was concerned that he might be infected and hence he came into the ER for further evaluation Temperature 97.7 pulse 82 respirations 18 blood pressure 118/58 with a pulse oximetry of 99% on room air His chronic problems include diabetes mellitus, hypertension, hypercholesterolemia, obstructive sleep apnea syndrome on BiPAP, morbid obesity Allergies: Coded Allergies: Penicillins (Unverified Allergy, Unknown, 02/18/25) Home Meds Active Scripts Oseltamivir Phosphate (Oseltamivir Phosphate) 75 Mg Capsule, 1 CAP PO BID for 5 Days, #10 CAP 0 Refills Prov:SILVINA BUSCH MD 04/29/25 Prednisone (Prednisone) 20 Mg Tablet, 1 TAB PO AD for 6 Days, #14 TAB 0 Refills TAKE 1 TAB BY MOUTH THREE TIMES PER DAY X3 DAYS, THEN TAKE 1 TAB BY MOUTH TWICE A DAY X2 DAYS, THEN TAKE 1 TAB BY MOUTH ONCE A DAY X1 DAY. Prov:SILVINA BUSCH MD 04/29/25 Metoprolol Succinate (Toprol Xl) 25 Mg Tab.er.24h, 25 MG PO DAILY, #60 TAB Prov:STEPH WHITEHEAD 03/08/25 Famotidine (Famotidine) 20 Mg Tablet, 20 MG PO DAILY, #60 TAB Prov:STEPH WHITEHEAD 03/08/25 Aspirin (ASPIRIN 81 MG ECTAB) 81 Mg Ectab, 81 MG PO DAILY, #60 TAB.EC Prov:STEPH WHITEHEAD 03/08/25 Reported Medications Clomiphene Citrate (Clomid) 50 Mg Tablet, 50 MG PO 2xwek, TAB 02/19/25 Glimepiride (Glimepiride) 4 Mg Tablet, 1 TAB PO DAILY for 30 Days, #30 TAB 0 Refills 02/19/25 Ergocalciferol (Vitamin D2) (Vitamin D2) 1,250 Mcg (74170 Unit) Capsule, 1250 MCG PO 2X/WEEK, CAP 02/18/25 Aspirin (Aspirin EC) 81 Mg Tablet.dr, 81 MG PO DAILY, TAB 02/18/25 Icosapent Ethyl (Vascepa) 1 Gram Capsule, 2 GM PO BID, CAP 02/18/25 Rosuvastatin Calcium (Rosuvastatin Calcium) 10 Mg Tablet, 10 MG PO DAILY, TAB 02/18/25 Lisinopril/Hydrochlorothiazide (Lisinopril-Hctz 20-25 mg Tab) 20 Mg-25 Mg Tablet, 1 EACH PO DAILY, TAB 02/18/25 Metformin HCl (Metformin HCl ER) 1,000 Mg Tab.er.24, 1000 MG PO BID RESUME METFORMIN ON 02/20/25 02/18/25 Dapagliflozin Propanediol (Farxiga) 10 Mg Tablet, 10 MG PO DAILY, TAB 02/18/25 Past Medical History Past Medical History: Diabetes-Type II, Hypertension Additional Past Medical Hx: PAD Surgical History: Cholecystectomy Surgical History Other: BILATERAL ILIAC STENT 02/19 Family History: Negative Social History: Negative RN Note Reviewed/Agreed w/PFSH: Yes Review of System Dictation Constitutional: Negative for fever,chills, and weight loss Eyes: Negative for injury, pain,redness, and discharge ENT: Negative for injury,pain or swelling Cardiovascular: Negative for chest pain, palpitations, and edema Respiratory: Negative for shortness of breath, cough, and wheezing, Abdomen/GI: Negative for abdominal pain, nausea, vomiting, diarrhea, and constipation Back: Negative for injury and pain : Negative for injury, bleeding and discharge MS/Extremity: Negative for injury and deformity positive for the right leg pain in the inguinal area as well as the lower extremity Skin: Negative for rash, and discoloration Neuro: Negative for headache, weakness, numbness, tingling, and seizure Psych: Negative for suicide ideation, homicidal ideation, and hallucinations Initial Vital Sign VS Vital Signs Date Time Temp Pulse Resp B/P (MAP) Pulse Ox O2 Delivery O2 Flow Rate FiO2 05/12/25 23:57 97.7 82 18 118/58 99 Room Air 0 05/13/25 03:05 21 Physical Exam Dictation General: awake, alert, NAD Head/Face: Normocephalic, atraumatic Eyes: PERRL, EOMI, vision at baseline ENT: oral cavity clear, TMs clear, no signs of infection Neck: Trachea midline, supple, no nuchal rigidity Cardiovascular: RRR, normal S1/S2, No MRGs, no JVD Respiratory: CTAB, no respiratory distress, No rales or wheezes Abdomen: Soft, non-tender, non-distended, normal bowel sounds, no guarding or rebound. Skin: Warm, dry, normal turgor, no rash MS/Extremity: Pulses equal, no cyanosis, neurovascular intact, FROM bilateral hyperpigmentation and venous stasis dermatitis, chronic edema. Neuro: COAx4, GCS 15, strength 5/5, CN 2-12 intact, normal cerebellar exam, normal gait, Psych: Normal behavior, mood, and affect normal Extremities-trace edema without any palpable cords, Homans sign is negative Results (Laboratory/Radiology) Labs Reviewed?: Yes Ultrasound Comment: REASON: PAD severe pain recent procedure ORDERING PHYSICIAN: SILVINA BUSCH MD PROCEDURE: ART B LE - US ARTERIAL BILAT LOW EXT DUPL EXAM: US Duplex bilateral Lower Extremity Arteries. CLINICAL HISTORY: PAD severe pain recent procedure TECHNIQUE: Real-time ultrasound scan of the arteries of the bilateral lower extremity with 2-D clarke scale, color Doppler flow, and spectral waveform analysis. COMPARISON: None provided. FINDINGS: Atherosclerotic wall thickening was noted in bilateral lower extremity arteries. COMMON FEMORAL ARTERY: No occlusion or significant stenosis. Triphasic waveform. Peak systolic velocity is 137 cm/s on the right side and 135 cm/s on the left side. SUPERFICIAL FEMORAL ARTERY: No occlusion or significant stenosis. Triphasic waveform. Peak systolic velocities are 120, 107, and 111 cm/s on the right and 104, 89, and 85 cm/s on the left in the proximal, mid, and distal superficial femoral arteries, respectively. POPLITEAL ARTERY: No occlusion or significant stenosis. Triphasic waveform. Peak systolic velocity is 81 cm/s on the right and 66 cm/s on the left. CALF ARTERIES: Monophasic waveforms and reduced flow in the right posterior tibial artery with a peak systolic velocity of 30 cm/s, anterior tibial artery distal course with a peak systolic velocity of 95 cm/s, and dorsalis pedis artery with a peak systolic velocity of 84 cm/s. The waveform is monophasic in the left posterior tibial artery with a peak systolic velocity of 99 cm/s. However, the waveform in the left anterior tibial artery and dorsalis pedis artery is triphasic with peak systolic velocities of 74 and 125 cm/s, respectively. OTHERS: A thrombus is seen in the right SSV. IMPRESSION: 1. No flow-limiting stenosis or occlusion in the bilateral lower extremity arteries. 2. Monophasic waveforms and reduced flow of right posterior tibial and dorsalis pedis arteries and left posterior tibial artery could be attributed to multilevel atherosclerosis. 3. Right SSV thrombus. As per the patient, there was a procedure done on 05/01/2025 with some foam to clot the vein. 4. Multilevel atherosclerotic wall thickening noted in bilateral lower extremity arteries. /[place] DICTATED BY: ORTIZ CAMPUZANO Jr., MD DATE: 05/13/25328 ELECTRONICALLY SIGNED BY: ORTIZ CAMPUZANO Jr., MD DATE: 05/13/25328 ED Course ED Course Orders Procedure Category Date Status Time Us Arterial Bilat Low US 05/13/25 Resulted Ext Dupl 00:53 Morphine 4mg Syg PHA 05/13/25 Complete (Morphine 4mg Syg) 01:00 Fentanyl Citrate Pf PHA 05/13/25 Complete 0.05 Mg/Ml (Fentanyl 01:30 Current Medications Medications (Trade) Dose Ordered Sig/Caitlin Route PRN Reason Start Time Stop Time Status Last Admin Dose Admin Fentanyl Citrate (FENTanyl CITRate PF 50 MCG/ 1 ML 2ML VIAL) 50 mcg ONCE ONCE IVP 05/13/25 01:30 05/13/25 01:31 DC 05/13/25 03:10 Morphine Sulfate (morPHINE 4MG SYG) 4 mg ONCE ONCE IM 05/13/25 01:00 05/13/25 01:11 DC Vital Signs Date Time Temp Pulse Resp B/P (MAP) Pulse Ox O2 Delivery O2 Flow Rate FiO2 05/13/25 04:19 98.4 78 18 130/74 99 Room Air* 0 21 05/13/25 03:05 98.2 81 20 134/72 95 Room Air* 0 21 05/12/25 23:57 97.7 82 18 118/58 99 Room Air 0 Medical Decision Making MDM Differential diagnosis: Occlusion of the venous stents, DVT, arterial clots and thrombus. Cellulitis This is a morbidly obese 54-year-old male who presented to the emergency room with complaints of right leg pain. He stated that he has severe hyper pigmentation of the lower extremities and venous stasis. Hardly the healthcare network consultant apparently has been working with him to address this problem and as the initial step he stated that he had bilateral stents in the inguinal area - subsequently he did a procedure to occlude SSV-superficial saphenous vein with the idea of collaterals and improving the venous return. This would be followed by compression stockings. Apparently patient had the procedure on 05/01 2025. He began experiencing pain in the right groin and right leg area and he was concerned that he might be infected and hence he came into the ER for further evaluation Temperature 97.7 pulse 82 respirations 18 blood pressure 118/58 with a pulse oximetry of 99% on room air His chronic problems include diabetes mellitus, hypertension, hypercholesterolemia, obstructive sleep apnea syndrome on BiPAP, morbid obesity I updated the patient on the ultrasound study where there was a clot in the superficial saphenous wean as was the intention of the procedure with presence of foam dressing recent procedure. Patient responded to pain medications and feels significantly improved and he stated that he would follow up with Dr. Wni soon. There was no evidence of any arterial clots or thrombus Rationale: Tests considered and ordered secondary to shared decision making include: Right lower extremity arterial ultrasound Previous outside records reviewed: Old ER visits. Risk of complication and/or morbidity or mortality of patient management: None Medications-Per medication reconciliation Need for hospitalization: Patient does not meet criteria for hospitalization. Need for emergency major/minor surgery: No There are no social concerns with this patient. Prescription drug management Prescriptions will include symptomatic care Patient's prior external medical records from other ER visits were reviewed by me as indicated. Prior testing and results from previous visits were reviewed. Prior tests were taken into account with medical decision making and resource utilization, independent historian/historians were used to obtain complete medical history. I independently interpreted the test that were performed, results were reviewed by me and considered findings on radiology if ordered. Medical management and examination interpretation discussions were had by me with other qualified healthcare professionals as indicated for the patient's care. Problem List Problem List: (1) Right leg pain (2) Venous stasis dermatitis of both lower extremities DX & DISP Disposition: Discharge Departure Impression: Primary Impression: Right leg pain Additional Impression: Venous stasis dermatitis of both lower extremities Condition: Stable Additional Instructions: Patient and the caregiver have been informed of all the diagnostic tests and the imaging conducted during the today's visit to the emergency room and has verbalized understanding of the results I have personally reviewed and interpreted all diagnostic exams performed here in the ER today as well as the vital signs documented by the nursing staff. The patient is now being discharged to home and should follow up with the primary care physician or the specialist as directed by the ER staff. 1 schedule a follow-up appointment; call your primary care physician's office on the next business day to set up a follow-up appointment. 2. Monitor symptoms; if your symptoms worsen return to the emergency room immediately. 3. Return to school/work; you may return to work or school in 2 days or as directed by your primary care physician. 4. Manage pain and fever; take [id number] Tylenol or Advil for pain or fever if there are no contraindications follow the recommended dosage instructions. 5. Stay well hydrated; drink plenty of oral fluids to stay hydrated. 6. Take prescribed medications; take any medications prescribed in the emergency room as directed bring them with you to your primary care physician visit for possible adjustments. 7. Complete medication course; finish the entire course of medication as prescribed even if you start feeling better. Do not have any leftover medication unless instructed otherwise. 8. Follow up on culture results; if a urine culture and wound culture was ordered in the emergency room please follow-up with your primary care physician within 2-3 days to review the culture and sensitivity report for appropriate antibiotic therapy adjustments. 9. Resume home medications; you may resume taking your home medications unless instructed otherwise. Referrals: MIRIAM RICHARDSON (PCP) SILVINA BUSCH MD May 13, 2025 03:17
[2025-05-13 04:19] VITALS: BP 130/74; PULSE 78; RESP 18; TEMP 98.4; O2SAT 99
== END 2025-05-13 04:21 | disposition home or self-care (01) ==
LOC: EDH 23:33
DX: M79.604 Pain in right leg (principal); I87.2 Venous insufficiency (chronic) (peripheral); I10 Essential (primary) hypertension; E11.9 Type 2 diabetes mellitus without complications; E78.00 Pure hypercholesterolemia, unspecified; E66.01 Morbid (severe) obesity due to excess calories; Z88.0 Allergy status to penicillin; Z79.899 Other long term (current) drug therapy; Z79.84 Long term (current) use of oral hypoglycemic drugs; Z79.82 Long term (current) use of aspirin; Z90.49 Acquired absence of other specified parts of digestive tract; Z68.45 Body mass index [BMI] 70 or greater, adult
CPT/HCPCS: 99284; 93925; 96374; J3010